=== PATIENT | male | born 1945 | race Caucasian/White ===

== ENCOUNTER 2017-05-08 07:20 | Outpatient (CLI) ==
--- NOTE | 2017-05-08 08:16 | DI ---
EXAM: Chest two view, frontal and lateral views. HISTORY: Hypertension. Smoking history. COMPARISON: 01/15/2012. FINDINGS: The heart size is normal. Atherosclerotic calcifications are present. There is no pulmon wero vascular congestion. The lungs are clear. No pleural effusion or pneumothorax is seen. No acut e osseous abnormality identified. Since the prior study, there has been no significant interval chamberlain ge. IMPRESSION: No acute cardiopulmonary process.
== END 2017-05-08 07:21 | disposition home or self-care (01) ==
LOC: RAD 07:20
PROVIDERS: ATTEND Internal Medicine
DX: I10 Essential (primary) hypertension (principal); Z87.891 Personal history of nicotine dependence

== ENCOUNTER 2017-06-07 09:50 | Inpatient (IN) ==
[2017-06-07] MEDS ORDERED: TYLENOL PO PRN (10:18)
[2017-06-07] MEDS ORDERED: MORPHINE 4 MG/ML VIAL IVP PRN (10:18)
[2017-06-07] MEDS ORDERED: NITROSTAT SL PRN (10:18)
[2017-06-07] MEDS ORDERED: VISTARIL INJ IM PRN (10:18)
[2017-06-07] MEDS ORDERED: ATROPINE SULFATE PFS IVP PRN (10:18)
[2017-06-07] MEDS ORDERED: DEXTROSE 5%-1/2NS IV SOLUTION 1,000 ML IV SCH ×2 (10:30→11:26)
[2017-06-07 10:56] VITALS: BMI 25.1
[2017-06-07] MEDS ORDERED: SOLU-MEDROL 125 MG IVP SCH (11:00)
[2017-06-07] MEDS: XOPENEX 1.25 MG NEB SCH ×3 (11:09→22:42)
[2017-06-07] MEDS ORDERED: LANOXIN IVP STA ×2 (11:29→20:09)
[2017-06-07] MEDS ORDERED: CARDIZEM PO STA (11:46)
[2017-06-07] MEDS ORDERED: CARDIZEM INJ 125 MG in SODIUM CHLORIDE 100 ML IV SCH (12:00)
[2017-06-07] MEDS: CARDIZEM INJ 125 MG in SODIUM CHLORIDE 100 ML IV SCH (12:04)
[2017-06-07] MEDS: ZITHROMAX PO SCH (12:09)
--- NOTE | 2017-06-07 13:50 | DI ---
Exam: Two x-rays of the chest. Comparison: 05/08/2017. Reason for exam: Short of air. FINDINGS: Patchy airspace opacities are seen in the right mid lung. No pneumothorax or pleural effus ion. The cardiac silhouette is not enlarged. The imaged osseous structures appear grossly unremarka ble without acute fracture. Impression: Patchy airspace opacities in the right lower lobe likely pneumonia.
[2017-06-07] MEDS: ROCEPHIN 1 GM in SODIUM CHLORIDE 50 ML IV SCH (14:53)
[2017-06-07] MEDS: SOLU-MEDROL 125 MG IVP SCH ×2 (14:53→21:06)
[2017-06-07] MEDS: DEXTROSE 5%-1/2NS IV SOLUTION 1,000 ML IV SCH (16:18)
[2017-06-07] MEDS ORDERED: CARDIZEM PO ONE (20:08)
[2017-06-07] MEDS ORDERED: CARDIZEM ONE (20:13)
[2017-06-07] MEDS: XALATAN OP SCH (21:05)
[2017-06-08] MEDS: DEXTROSE 5%-1/2NS IV SOLUTION 1,000 ML IV SCH ×2 (00:15→21:37)
[2017-06-08] MEDS ORDERED: CARDIZEM ONE (05:04)
[2017-06-08] MEDS: XOPENEX 1.25 MG NEB SCH ×4 (05:08→23:02)
[2017-06-08] MEDS ORDERED: CARDIZEM INJ ONE (05:18)
[2017-06-08] MEDS: SOLU-MEDROL 125 MG IVP SCH ×3 (05:22→20:43)
[2017-06-08] MEDS ORDERED: SODIUM CHLORIDE 100 ML IV ONE (05:27)
[2017-06-08] MEDS ORDERED: CARDIZEM PO ONE ×3 (06:00→20:08)
[2017-06-08] MEDS: ROCEPHIN 1 GM in SODIUM CHLORIDE 50 ML IV SCH (08:39)
[2017-06-08] MEDS: ZITHROMAX PO SCH (08:40)
[2017-06-08] MEDS: ASPIRIN EC PO SCH (08:40)
[2017-06-08] MEDS: LOVENOX SUBCUT SCH ×2 (08:40→20:44)
[2017-06-08] MEDS ORDERED: ASPIRIN EC PO SCH (09:00)
--- NOTE | 2017-06-08 09:50 | PCM.PROG ---
Attending Provider: ATTENDING PROVIDER: Dr. RAYA DUKES This patient is seen with Yue Knight, Nurse Practitioner. DATE OF SERVICE: 06/08/17 SUBJECTIVE: This 71 year old WHITE/ M was hospitalized 06/07/17. The patient is admitted with pneumonia. The patient's new problem is atrial flutter with rate of 170/min. REVIEW OF SYSTEMS: CONSTITUTIONAL: The patient is feeling better. No night sweats. No fatigue, malaise, lethargy. No fever or chills. HEENT: Positive for husky voice. Eyes: No visual changes. No eye pain. No eye discharge. ENT: No runny nose. No epistaxis. No sinus pain. No odynophagia. No congestion. RESPIRATORY: No cough, no congestion. No hemoptysis. No shortness of breath. CARDIOVASCULAR: No angina symptoms. No CHF symptoms or symptoms of coronary insufficiency. No atypical chest pain for CAD. No palpitations. No orthopnea.. GASTROINTESTINAL: Appetite improved. No abdominal pain. No nausea or vomiting. No diarrhea or constipation. No hematemesis. No hematochezia. GENITOURINARY: No urgency. No frequency. No dysuria. No hematuria. No obstructive symptoms. No discharge. No pain. No significant abnormal bleeding. MUSCULOSKELETAL: No musculoskeletal pain; no joint swelling. NEUROLOGICAL: Awake, alert, oriented to time, place and person. No headache. No neck pain. No syncope. No seizures. No dizziness. PSYCHIATRIC: Not anxious. No depression. No suicidal thoughts. No homicidal thoughts. SKIN: No rash. No lesions. No wounds. ENDOCRINE: No unexplained weight loss. No weight gain. HEMATOLOGIC/LYMPHATIC: No anemia. No purpura. No petechiae. No prolonged or excessive bleeding. No palpable lymph nodes. PHYSICAL EXAMINATION: GENERAL: The patient is awake, alert and oriented, lying in bed in no distress. VITAL SIGNS: Temperature 97.0 F, Pulse 85, Respiratory Rate 22, BP 130/66, Pulse Ox 93% HEENT: Head normocephalic, atraumatic. Eyes: Extraocular muscles are intact. Pupils are equal, round and reactive to light and accommodation. Ears: No lesions. Nose appeared normal. Throat: No exudate or erythema. NECK: Supple. No JVD, no carotid bruit. No lymphadenopathy or thyromegaly. LUNGS: Decreased breath sounds but more air entry with expiratory wheeze. Clear to auscultation. Percussion note normal. Chest symmetrical. HEART: S1, S2, no S3. No murmurs. No cyanosis or clubbing. No ascites. Pulses: Dorsalis pedis and posterior tibial pulses +1 bilaterally.. ABDOMEN: Soft. Non-tender. Bowel sounds active. No CVA tenderness. No mass felt. EXTREMITIES: No edema. Full range of motion of all extremities, equal. NEUROLOGIC: No focal deficit. Cranial nerves II through XII are grossly intact. No headache, no double vision or headache. SKIN: Not dry. Intact. Turgor-normal. LYMPHATIC: No palpable lymph nodes/no lymphedema. MUSCULOSKELETAL: Normal joints with no swelling. Muscle tone is normal. LAB REVIEW: 06/08/17 05:05 06/08/17 05:05 06/08/17 05:05: Sodium 128 L, Potassium 4.3, Chloride 98, Carbon Dioxide 19 L, Anion Gap 15.3, BUN 26 H, Creatinine 0.95, Estimated GFR (MDRD) 78.00, BUN/ Creatinine Ratio 27.36, Glucose 213 H D, Calcium 8.3, Total Bilirubin 0.37, AST 26, ALT 34, Alkaline Phosphatase 53 L, Total Protein 6.2, Albumin 2.7 L, Globulin 3.5, Albumin/Globulin Ratio 0.77 06/08/17 05:05: WBC 4.47 D, RBC 3.81 L, Hgb 12.7 L, Hct 35.1 L, MCV 92.1, MCH 33.3 H, MCHC 36.2 H, RDW Coeff of Cristino 11.9, Plt Count 216, Immature Gran % (Auto ) 0.7, Neut % (Auto) 83.9, Lymph % (Auto) 12.3, [place] % (Auto) 3.1, Eos % (Auto) 0.0, Baso % (Auto) 0.0, Immature Gran # (Auto) 0.0, Neut # 3.8, Lymph # 0.6, [place] # 0.1 L, Eos # 0.0, Baso # 0.0 06/07/17 20:01: Influenza A (Rapid) Negative, Influenza B (Rapid) Negative 06/07/17 18:30: Total Creatine Kinase 179, CK-MB (CK-2) 2.7, CK-MB (CK-2) % 1.39003, Myoglobin 131, Troponin I < 0.0100 06/07/17 13:15: Urine Color Yellow, Urine Clarity Clear, Urine pH 6.0, Ur Specific [place] 1.015, Urine Protein 1+, Urine Glucose (UA) Negative, Urine Ketones Negative, Urine Blood 1+, Urine Nitrite Negative, Urine Bilirubin Negative, Urine Urobilinogen 0.2, Ur Leukocyte Esterase Negative, Urine Microscopic RBC 0-2, Ur Squamous Epith Cells 0-2 06/07/17 10:45: Sodium 130 L, Potassium 4.1, Chloride 97 L, Carbon Dioxide 20 L , Anion Gap 17.1, BUN 26 H, Creatinine 1.14 H, Estimated GFR (MDRD) 64.00, BUN/ Creatinine Ratio 22.80, Glucose 147 H, Calcium 9.0, Total Bilirubin 0.54, AST 20 , ALT 19, Alkaline Phosphatase 61, Total Creatine Kinase 185, CK-MB (CK-2) 2.7, CK-MB (CK-2) % 1.06109, Myoglobin 155, Troponin I 0.0220, Total Protein 7.0, Albumin 3.2 L, Globulin 3.8, Albumin/Globulin Ratio 0.84 06/07/17 10:45: Puncture Site R rad, O2 Saturation 92.0 L, ABG pH 7.497 H, ABG pCO2 25.5 L, ABG pO2 57.0 L*, ABG HCO3 19.7 L, ABG Total CO2 20 L, ABG Base Excess -3 L, Gunner Test +, FiO2 % 21.0 06/07/17 10:45: WBC 9.67, RBC 4.15 L, Hgb 13.9 L, Hct 38.9 L, MCV 93.7, MCH 33.5 H, MCHC 35.7 H, RDW Coeff of Cristino 12.3, Plt Count 219, Immature Gran % (Auto ) 0.4, Neut % (Auto) 86.7, Lymph % (Auto) 5.3 L, [place] % (Auto) 7.4, Eos % (Auto ) 0.0, Baso % (Auto) 0.2, Immature Gran # (Auto) 0.0, Neut # 8.4 H, Lymph # 0.5 L, [place] # 0.7, Eos # 0.0, Baso # 0.0 ASSESSMENT: 1. Pneumonia, improving clinically 2. Atrial flutter/fib acceptable rate of 90 to 110 3. Former smoker, quit 15 years ago 4. Normal valves by echo, nonvalvular atrial fib with normal LV contractility and mild LVH. Atrial cavity 4.3 cm PLAN: 1. Continue steroids and antibiotics 2. Nebs treatment 3. Add Lovenox 40 mg twice a day with 40 mg now 4. CHADS2 VASC score is 2. Plan and coordination of the patient's care discussed in the presence of Accountant Manager and nurse. CONDITION: Stable, improving. SCRIBED BY: KIKI BELTRE, Case Loader Operator scribed while in presence of service performed by Dr. Dukes/Yue Knight APRN on 06/08/17 ([id number])
--- NOTE | 2017-06-08 11:42 | HP ---
DATE OF SERVICE: 06/07/17 REASON FOR HOSPITALIZATION: HISTORY OF PRESENT ILLNESS: PAST MEDICAL HISTORY: PAST SURGICAL HISTORY: REVIEW OF SYSTEMS: CONSTITUTIONAL: No night sweats. No fatigue, malaise, lethargy. No fever or chills. HEENT: Eyes: No visual changes. No eye pain. No eye discharge. ENT: No runny nose. No epistaxis. No sinus pain. No sore throat. No odynophagia. No ear pain. No congestion. RESPIRATORY: No cough, no congestion. No hemoptysis. No shortness of breath. CARDIOVASCULAR: No angina symptoms. No CHF symptoms. No atypical chest pain for CAD. No palpitations. No orthopnea. GASTROINTESTINAL: No abdominal pain. No nausea or vomiting. No diarrhea or constipation. No hematemesis. No hematochezia. GENITOURINARY: No urgency. No frequency. No dysuria. No hematuria. No obstructive symptoms. No discharge. No pain. No significant abnormal bleeding. MUSCULOSKELETAL: No musculoskeletal pain. No joint swelling. No arthritis. NEUROLOGICAL: No headache. No neck pain. No syncope. No seizures. No dizziness. PSYCHIATRIC: Not anxious. No depression. No suicidal thoughts. No homicidal thoughts. SKIN: No rash. No lesions. No wounds. ENDOCRINE: No unexplained weight loss. No weight gain. HEMATOLOGIC/LYMPHATIC: No anemia. No purpura. No petechiae. No prolonged or excessive bleeding. No palpable lymph nodes. PERSONAL/FAMILY/SOCIAL HISTORY: MEDICATIONS: ALLERGIES: PHYSICAL EXAMINATION: GENERAL: The patient is , lying/sitting in bed in no distress. VITAL SIGNS: HEENT: Head normocephalic, atraumatic. Eyes: Extraocular muscles are intact. Pupils are equal, round and reactive to light and accommodation. Ears: No lesions. Nose appeared normal. Throat: No exudate or erythema. NECK: Supple. No JVD, no carotid bruit. No lymphadenopathy or thyromegaly. LUNGS: Clear to auscultation. Percussion note normal. Chest symmetrical. HEART: S1, S2, no S3. No murmurs. No cyanosis or clubbing. No ascites. Pulses: Dorsalis pedis and posterior tibial pulses +1 to +2 both sides. ABDOMEN: Soft. Nontender. Bowel sounds active. No CVA tenderness. No mass felt. EXTREMITIES: No edema. Full range of motion of all extremities, equal. NEUROLOGIC: No focal deficit. Cranial nerves II through XII are grossly intact. No headache, no double vision or headache. SKIN: Not dry. Intact. Turgor - normal. LYMPHATIC: No palpable lymph nodes/no lymphedema. MUSCULOSKELETAL: Normal joints with no swelling. Muscle tone is normal. LABS: Sodium 130, potassium 4.1, chloride 97, c02 20, BUN 26, creatinine 1.14, glucose 147, GFR 64, total bili 0.54, AST 20, ALT 19, CK 185, CK-MB 2.7, troponin 0.02, total protein 7.0, albumin 3.2, alkaline phosphatase 61. White count 9.67, red blood cells 4.15, hemoglobin 13.9, hematocrit 38.9, platelets 219. ABGs on room air pH 7.497, pc02 25.5, p02 57, base excess of negative 3, bicarb 19.7, TC02 20, 02 sat 92. Urine color is yellow, pH 6.0, protein 1+, negative glucose, negative ketones, 1+ blood, negative nitrites, negative bili, negative leuks. Chest x-ray shows patchy air space opacities in right lower lobe likely pneumonia. TIME SPENT: More than 70 minutes. MTDD
[2017-06-08] MEDS: CARDIZEM INJ 125 MG in SODIUM CHLORIDE 100 ML IV SCH (12:00)
[2017-06-08] MEDS: CARDIZEM PO SCH (20:44)
[2017-06-08] MEDS: XALATAN OP SCH (20:47)
[2017-06-09] MEDS: XOPENEX 1.25 MG NEB SCH ×4 (04:42→22:40)
[2017-06-09] MEDS: SOLU-MEDROL 125 MG IVP SCH ×2 (05:22→13:47)
[2017-06-09] MEDS: ASPIRIN EC PO SCH (09:46)
[2017-06-09] MEDS: CARDIZEM PO SCH ×2 (09:46→20:30)
[2017-06-09] MEDS: ROCEPHIN 1 GM in SODIUM CHLORIDE 50 ML IV SCH (09:46)
[2017-06-09] MEDS: LOVENOX SUBCUT SCH ×2 (09:47→20:29)
[2017-06-09] MEDS: ZITHROMAX PO SCH (09:47)
[2017-06-09] MEDS: XALATAN OP SCH (20:29)
[2017-06-10] MEDS: DEXTROSE 5%-1/2NS IV SOLUTION 1,000 ML IV SCH ×2 (02:30→02:31)
[2017-06-10] MEDS: XOPENEX 1.25 MG NEB SCH ×4 (04:30→22:43)
[2017-06-10] MEDS: ASPIRIN EC PO SCH (09:20)
[2017-06-10] MEDS: CARDIZEM PO SCH ×2 (09:20→20:25)
[2017-06-10] MEDS: LOVENOX SUBCUT SCH ×2 (09:22→20:24)
[2017-06-10] MEDS: PREDNISONE PO SCH (09:23)
[2017-06-10] MEDS: ROCEPHIN 1 GM in SODIUM CHLORIDE 50 ML IV SCH (11:30)
[2017-06-10] MEDS: KEFLEX PO SCH ×2 (16:03→20:25)
[2017-06-10] MEDS: XALATAN OP SCH (20:24)
[2017-06-11] MEDS: KEFLEX PO SCH ×2 (04:21→12:46)
[2017-06-11] MEDS: XOPENEX 1.25 MG NEB SCH ×2 (04:52→11:10)
--- NOTE | 2017-06-11 08:43 | PN ---
DATE OF SERVICE: 06/07/17 SUBJECTIVE: The patient was hospitalized this morning with acute bronchitis and severe chronic lung disease. The patient on further work when he was monitored and had an EKG done showed atrial flutter with rate of 170 per minute. The patient's systolic blood pressure 112 and he doesn't have any symptoms of coronary insufficiency. The patient was given IV 5mg Cardizem and 5mg per minute drip along with Lanoxin 0.25mg IV with 60mg PO Cardizem dose. When I rechecked the patient again in the special care the patient was oriented to time, place and person and he says that he is feeling better. His rate was 110 with atrial flutter with varying degree of AV block. He had Carotid massage with nearly 4-5 second pause with atrial flutter waves noted. The patient was explained about these findings. The patient will be given Lovenox. CONDITION: Stable. TIME SPENT: More than 30 minutes. Plan and coordination of the patient's care discussed in the presence of nurse. ABEBA
[2017-06-11] MEDS: CARDIZEM PO SCH (08:55)
[2017-06-11] MEDS: PREDNISONE PO SCH (08:55)
[2017-06-11] MEDS: ASPIRIN EC PO SCH (08:55)
[2017-06-11] MEDS: LOVENOX SUBCUT SCH (08:55)
[2017-06-11] MEDS: CARDIZEM INJ 125 MG in SODIUM CHLORIDE 100 ML IV SCH (09:48)
--- NOTE | 2017-06-11 10:07 | DI ---
EXAM: Two views of the chest. History: Follow-up pneumonia Comparison: Chest radiograph 06/07/2017 Findings: Heart size is within normal limits. Resolved right lower lobe infiltrate. No developing opacities. No appreciable pleural fluid and no pneumothorax. Atherosclerotic vascular calcification s. No acute osseous abnormalities. Impression: No acute cardiopulmonary process
[2017-06-11 10:41] VITALS: BP 118/64; TEMP 98
--- NOTE | 2017-06-11 10:50 | PCM.PROG ---
Attending Provider: ATTENDING PROVIDER: Dr. RAYA DUEKS This patient is seen with Yue Knight, Nurse Practitioner. DATE OF SERVICE: 06/11/17 SUBJECTIVE: This 71 year old WHITE/ M was hospitalized 06/07/17. The patient is lying in bed, alert. He states he is ready to go home today. He has been up and about walking. Shortness of breath has significantly improved. REVIEW OF SYSTEMS: CONSTITUTIONAL: No night sweats. No fatigue, malaise, lethargy. No fever or chills. HEENT: Eyes: No visual changes. No eye pain. No eye discharge. ENT: No runny nose. No epistaxis. No sinus pain. No odynophagia. No congestion. RESPIRATORY: Positive for cough and congestion. No hemoptysis. No shortness of breath. CARDIOVASCULAR: No angina symptoms. No CHF symptoms. No atypical chest pain for CAD. No palpitations. No orthopnea.. GASTROINTESTINAL: No abdominal pain. No nausea or vomiting. No diarrhea or constipation. No hematemesis. No hematochezia. GENITOURINARY: No urgency. No frequency. No dysuria. No hematuria. No obstructive symptoms. No discharge. No pain. No significant abnormal bleeding. MUSCULOSKELETAL: No musculoskeletal pain; no joint swelling. NEUROLOGICAL: Awake, alert, oriented to time, place and person. No headache. No neck pain. No syncope. No seizures. No dizziness. PSYCHIATRIC: Not anxious. No depression. No suicidal thoughts. No homicidal thoughts. SKIN: No rash. No lesions. No wounds. ENDOCRINE: No unexplained weight loss. No weight gain. HEMATOLOGIC/LYMPHATIC: No anemia. No purpura. No petechiae. No prolonged or excessive bleeding. No palpable lymph nodes. PHYSICAL EXAMINATION: GENERAL: The patient is awake, alert and oriented, sitting in bed in no distress. VITAL SIGNS: Temperature 97.8 F, Pulse 65, Respiratory Rate 23, BP 127/63, Pulse Ox 92% HEENT: Head normocephalic, atraumatic. Eyes: Extraocular muscles are intact. Pupils are equal, round and reactive to light and accommodation. Ears: No lesions. Nose appeared normal. Throat: No exudate or erythema. NECK: Supple. No JVD, no carotid bruit. No lymphadenopathy or thyromegaly. LUNGS: Diminished breath sounds bilaterally with improved bilateral rhonchi. Percussion note normal. Chest symmetrical. HEART: S1, S2, no S3. No murmurs. No cyanosis or clubbing. No ascites. Pulses: Dorsalis pedis and posterior tibial pulses +1 to +2 both sides. ABDOMEN: Soft. Non-tender. Bowel sounds active. No CVA tenderness. No mass felt. EXTREMITIES: No edema. Full range of motion of all extremities, equal. NEUROLOGIC: No focal deficit. Cranial nerves II through XII are grossly intact. No headache, no double vision or headache. SKIN: Not dry. Intact. Turgor-normal. LYMPHATIC: No palpable lymph nodes/no lymphedema. MUSCULOSKELETAL: Normal joints with no swelling. Muscle tone is normal. LAB REVIEW: 06/11/17 04:49 06/11/17 04:49 06/11/17 04:49: Hemoglobin A1c 6.1 H 06/11/17 04:49: Sodium 133 L, Potassium 4.6, Chloride 102, Carbon Dioxide 23, Anion Gap 12.6, BUN 24 H, Creatinine 0.92, Estimated GFR (MDRD) 81.00, BUN/ Creatinine Ratio 26.08, Glucose 138 H, Calcium 8.5, Total Bilirubin 0.36, AST 20 , ALT 62, Alkaline Phosphatase 53 L, Total Protein 5.5 L, Albumin 2.8 L, Globulin 2.7, Albumin/Globulin Ratio 1.04, TSH 0.529, Free T4 1.19 H 06/11/17 04:49: WBC 7.52, RBC 3.60 L, Hgb 11.8 L, Hct 33.5 L, MCV 93.1, MCH 32.8 H, MCHC 35.2, RDW Coeff of Cristino 12.1, Plt Count 311, Neutrophils % (Manual) 68.0, Lymphocytes % (Manual) 20.0, Monocytes % (Manual) 12.0 H, Anisocytosis Not present 06/11/17 04:20: Puncture Site Lb, O2 Saturation 92.0 L, ABG pH 7.462 H, ABG pCO2 35.3, ABG pO2 61.0 L, ABG HCO3 25.2, ABG Total CO2 26, ABG Base Excess 1, Gunner Test +, FiO2 % 21.0 ASSESSMENT: 1. Pneumonia, improving clinically 2. Atrial flutter/fib acceptable rate of 90 to 110 3. Former smoker, quit 15 years ago 4. Normal valves by echo, nonvalvular atrial fib with normal LV contractility and mild LVH. Atrial cavity 4.3 cm PLAN: 1. D/C home 2. Resume Keflex times 7 days 3. Prednisone 20 mg b.i.d. for 2 days, daily for 3 days 4. Continue ProAir inhaler 3 to 4 times daily 5. Continue Cardizem Plan and coordination of the patient's care discussed in the presence of Geospatial Analyst and nurse. CONDITION: Stable SCRIBED BY: KIKI BELTRE Guest Relations Manager scribed while in presence of service performed by Dr. Dukes/Yue Knight APRN on 06/11/17 ([id number])
--- NOTE | 2017-06-11 11:22 | CM.DICTOOL ---
ADMISSION: 06/07/17 09:50 DISCHARGE: 05/1817 DATE OF SERVICE: 06/11/17 FINAL DIAGNOSIS PNEUMONIA, COMMUNITY ACQUIRED A-FIB/FLUTTER, RATE CONTROLLED HYPERTENSION HISTORY OF ELEVATED PSA CAROTID OCCULSIVE DISEASE S/P ENDARTERECTOMY, 2012-DR. COOK FORMER SMOKER LAST VITALS Temp Pulse Resp BP Pulse Ox 98 F 74 20 118/64 94 L 06/11/17 10:00 06/11/17 10:00 06/11/17 10:00 06/11/17 10:00 06/11/17 10:00 ACTIVE MEDICATIONS Albuterol Sulfate (Proair Hfa) 2 puffs IH Q4H Aspirin (Aspirin Ec) 81 mg PO DAILYWM LARA Last Admin: 06/11/17 08:55 Dose: 81 mg Cephalexin (Keflex) 500 mg PO Q8HR LARA (INSTRUCTED TO COMPLETE AT HOME) Last Admin: 06/11/17 04:21 Dose: 500 mg Latanoprost (Xalatan) 1 drop OP BEDTIME LARA Last Admin: 06/10/17 20:24 Dose: 1 drop Losartan Potassium (Cozaar) 50 mg PO DAILY (DISCONTINUED) ALLERGIES No Known Allergies Allergy (Unverified 06/10/17 16:04) NEW PRESCRIPTIONS: PLEASE DO NOT TAKE YOUR LOSARTAN POTASSIUM (COZAAR). THIS HAS BEEN DISCONTINUED PLEASE FINISH THE KEFLEX MEDICATION PRESCRIBED PRIOR TO THIS HOSPITALIZATION NEW PRESCRIPTIONS DILTIAZEM HCL (CARDIZEM) 60 MG, TAKE ONE TABLET BY MOUTH EVERY 12 HOURS PREDNISONE 20 MG, TAKE ONE TABLET BY MOUTH TWICE DAILY FOR 2 DAYS, THEN DAILY FOR 3 DAYS. TAKE WITH FOOD SMOKING: FORMER SMOKER NONE FOR 15+ YEARS DISEASE SPECIFIC EDUCATION: AFIB/FLUTTER PNEUMONIA HOME MEDICATIONS NEW PRESCRIPTIONS ADVERSE EFFECTS OF LONG-TERM USE OF STEROIDS FOLLOW UP LAB REVIEW: 06/11/17 04:49 06/11/17 04:49 06/11/17 04:49: Hemoglobin A1c 6.1 H 06/11/17 04:49: Sodium 133 L, Potassium 4.6, Chloride 102, Carbon Dioxide 23, Anion Gap 12.6, BUN 24 H, Creatinine 0.92, Estimated GFR (MDRD) 81.00, BUN/ Creatinine Ratio 26.08, Glucose 138 H, Calcium 8.5, Total Bilirubin 0.36, AST 20 , ALT 62, Alkaline Phosphatase 53 L, Total Protein 5.5 L, Albumin 2.8 L, Globulin 2.7, Albumin/Globulin Ratio 1.04, TSH 0.529, Free T4 1.19 H 06/11/17 04:49: WBC 7.52, RBC 3.60 L, Hgb 11.8 L, Hct 33.5 L, MCV 93.1, MCH 32.8 H, MCHC 35.2, RDW Coeff of Cristino 12.1, Plt Count 311, Neutrophils % (Manual) 68.0, Lymphocytes % (Manual) 20.0, Monocytes % (Manual) 12.0 H, Anisocytosis Not present 06/11/17 04:20: Puncture Site Lb, O2 Saturation 92.0 L, ABG pH 7.462 H, ABG pCO2 35.3, ABG pO2 61.0 L, ABG HCO3 25.2, ABG Total CO2 26, ABG Base Excess 1, Gunner Test +, FiO2 % 21.0 PLAN: DISCHARGE HOME TODAY RETURN TO SEE DR. DUKES ON 06/20/17 AT 10:30 A.M. RESUME YOUR HOME MEDICATIONS PER LIST PROVIDED BY THE NURSING STAFF PLEASE DO NOT TAKE YOUR LOSARTAN POTASSIUM (COZAAR). THIS HAS BEEN DISCONTINUED PLEASE FINISH THE KEFLEX MEDICATION PRESCRIBED PRIOR TO THIS HOSPITALIZATION NEW PRESCRIPTIONS DILTIAZEM HCL (CARDIZEM) 60 MG, TAKE ONE TABLET BY MOUTH EVERY 12 HOURS PREDNISONE 20 MG, TAKE ONE TABLET BY MOUTH TWICE DAILY FOR 2 DAYS, THEN DAILY FOR 3 DAYS. TAKE WITH FOOD ACTIVITY GET PLENTY OF REST AT HOME. GRADUALLY INCREASE YOUR ACTIVITY LEVEL ACCORDING TO YOUR TOLERATION DIET HEALTHY HEART SUMMARY THE PATIENT IS ALERT AND ORIENTED X3. HE CURRENTLY RESIDES AT HOME WITH HIS SPOUSE. HE DESIRES TO RETURN THERE AT DISCHARGE. HE HAS BEEN INDEPENDENT WITH [employer] AND HAS NOT REQUIRED ANY DME, HOME HEALTH OR HOMEMAKING SERVICES. AT DISCHARGE HE WILL NOT REQUIRE ANY OF THESE SERVICES. HIS SKIN TURGOR IS INTACT AND WITHOUT DECUBITUS ULCERS. HYDRATION AND NUTRITIONAL STATUS ARE GOOD AT DISCHARGE. THE PATIENT IS AWARE AND AGREEABLE FOR TODAY'S DISCHARGE PLAN. CURRENT CODE STATUS FULL CODE Stan MARTINI APRN RAYA DUKES M.D.
--- NOTE | 2017-06-12 07:33 | ECHO2D ---
Date of Exam: 06/08/17 Ordering Physician: RAYA DUKES Room #: SCU 1 Reason for Echo: ATRIAL FIBRILLATION, SHORT OF AIR M-Mode Normal Adult Results LV Dimensions Normal Adult Results AoV Opening excursions >1.6 >1.6 LVEDD-base- 3.5-5.8 4.3 Ao root dimensions 2.0-3.7 3.2 LVESD-base- 3.1-4.6 L. Atrium dimensions 1.9-3.8 4.3 Post. Wall thickness 0.8-1.1 1.3 IV septum (thickness) 0.7-1.2 1.3 Post. Wall excursion 0.72-1.3 NORMAL Septal motion NORMAL Systolic motion R. Ventricular cavity 1.5-2.0 NORMAL LVEF 60% 62% Paradoxical septal wall motion NORMAL 2-D : ENLARGED LEFT ATRIAL CAVITY, NORMAL LEFT VENTRICULAR CONTRACTILITY--NO EFFUSION, NO THROMBUS, NORMAL LEFT VENTRICLE SIZE M-MODE: MV: NORMAL AV: NORMAL TV: NORMAL PV: CHAMBER SIZE: ENLARGED LEFT ATRIAL CAVITY WALL MOTION: NORMAL PERICARDIUM: NORMAL INTERPRETATION: 1. LEFT VENTRICULAR HYPERTROPHY WITH ENLARGED LEFT ATRIAL CAVITY 2. NORMAL LEFT VENTRICULAR CONTRACTILITY 3. NORMAL LEFT VENTRICLE SIZE MTDD
--- NOTE | 2017-06-14 11:29 | PN ---
DATE OF SERVICE: 06/11/17 SUBJECTIVE: 71 year old white male seen with the Nurse Practitioner. The patient was admitted with pneumonia. The patient's pneumonia has resolved. He is up and about. His oxygen saturation is more than 90% on room air. The patient has been explained about chronic lung disease, also explained about his atrial fib/ flutter which he had it secondary to pneumonia and chronic lung disease. The patient's atrial flutter/fib has resolved he is in sinus rhythm. He was explained about all the medications. He has declined to consider any NORVAL blood thinner or Coumadin. I don't think that patient needs to be on. This is first episode based on his pneumonia and chronic lung disease. He was advised pulmonary rehab which he has declined. The patient during the stay in the hospital was treated with antibiotics, steroids, NEBS treatments. He is against taking any medications. A1c and PFT pending. CONDITION: Stable. TIME SPENT: More than 30 minutes. Plan and coordination of the patient's care discussed in the presence of nurse. ABEBA
--- NOTE | 2017-06-14 11:31 | PN ---
06/07/17: Level 5 06/08/17: Extensive 06/09/17: Intermediate 06/10/17: Intermediate 06/11/17: D as in discharge MTDD
--- NOTE | 2017-06-20 15:08 | PN ---
DATE OF SERVICE: 06/10/17 SUBJECTIVE: 71-year-old white male hospitalized with pneumonia. The patient's condition has improved remarkably. REVIEW OF SYSTEMS: CONSTITUTIONAL: No night sweats. No fatigue, malaise, lethargy. No fever or chills. HEENT: Eyes: No visual changes. No eye pain. No eye discharge. ENT: No runny nose. No epistaxis. No sinus pain. No sore throat. No odynophagia. No congestion. RESPIRATORY: No cough, no congestion. No hemoptysis. No shortness of breath. CARDIOVASCULAR: No angina symptoms. No CHF symptoms. No atypical chest pain for CAD. No palpitations. No orthopnea. GASTROINTESTINAL: No abdominal pain. No nausea or vomiting. No diarrhea or constipation. No hematemesis. No hematochezia. GENITOURINARY: No urgency. No frequency. No dysuria. No hematuria. No obstructive symptoms. No discharge. No pain. No significant abnormal bleeding. MUSCULOSKELETAL: No musculoskeletal pain; no joint swelling. NEUROLOGICAL: No headache. No neck pain. No syncope. No seizures. No dizziness. PSYCHIATRIC: Not anxious. No depression. No suicidal thoughts. No homicidal thoughts. SKIN: No rash. No lesions. No wounds. ENDOCRINE: No unexplained weight loss. No weight gain. HEMATOLOGIC/LYMPHATIC: No anemia. No purpura. No petechiae. No prolonged or excessive bleeding. No palpable lymph nodes. PHYSICAL EXAMINATION: GENERAL: The patient is oriented to time, place and person. VITAL SIGNS: Temperature 97.6, pulse 70, respiratory rate 20, BP 156/64, pulse ox 93%. HEENT: Head normocephalic, atraumatic. Eyes: Extraocular muscles are intact. Pupils are equal, round and reactive to light and accommodation. Ears: No lesions. Nose appeared normal. Throat: No exudate or erythema. NECK: Supple. No JVD, no carotid bruit. No lymphadenopathy or thyromegaly. LUNGS: Decreased breath sounds but clear to auscultation. Percussion note normal. Chest symmetrical. HEART: S1, S2, no S3. No murmurs. No cyanosis or clubbing. No ascites. Pulses: Dorsalis pedis and posterior tibial pulses +1 to +2 both sides. ABDOMEN: Soft. Nontender. Bowel sounds active. No CVA tenderness. No mass felt. EXTREMITIES: No edema. Full range of motion of all extremities, equal. NEUROLOGIC: No focal deficit. Cranial nerves II through XII are grossly intact. No headache, no double vision or headache. SKIN: Not dry. Intact. Turgor - normal. LYMPHATIC: No palpable lymph nodes/no lymphedema. MUSCULOSKELETAL: Normal joints with no swelling. Muscle tone is normal. ASSESSMENT: 1. PNEUMONIA SEEMS TO BE RESOLVING CLINICALLY 2. CHRONIC LUNG DISEASE 3. HYPERTENSION UNDER CONTROL 4. HYPERGLYCEMIA LIKELY FROM STEROID EFFECT PLAN: 1. Discontinue IV antibiotics 2. Begin Keflex 500 mg t.i.d. 3. Continue nebs treatment 4. Tomorrow morning the patient will have chest x-ray with PFT, A1C, T4 and TSH 5. The patient is advised to be up and about CONDITION: Stable. TIME SPENT: More than 30 minutes. Plan and coordination of the patient's care discussed in the presence of nurse. ABEBA
--- NOTE | 2017-06-22 11:49 | PN ---
DATE OF SERVICE: 06/09/17 SUBJECTIVE: 71 year old white male hospitalized with pneumonia right sided with acute respiratory failure. The patient's other problem with atrial flutter. The patient's condition has steadily improved. is in the room. REVIEW OF SYSTEMS: CONSTITUTIONAL: No night sweats. No fatigue, malaise, lethargy. No fever or chills. HEENT: Eyes: No visual changes. No eye pain. No eye discharge. ENT: No runny nose. No epistaxis. No sinus pain. No sore throat. No odynophagia. No congestion. RESPIRATORY: Mild cough, no congestion. No hemoptysis. No shortness of breath. CARDIOVASCULAR: No angina symptoms. No CHF symptoms. No atypical chest pain for CAD. No palpitations. No orthopnea. GASTROINTESTINAL: No abdominal pain. No nausea or vomiting. No diarrhea or constipation. No hematemesis. No hematochezia. GENITOURINARY: No urgency. No frequency. No dysuria. No hematuria. No obstructive symptoms. No discharge. No pain. No significant abnormal bleeding. MUSCULOSKELETAL: No musculoskeletal pain; no joint swelling. NEUROLOGICAL: No headache. No neck pain. No syncope. No seizures. No dizziness. PSYCHIATRIC: Not anxious. No depression. No suicidal thoughts. No homicidal thoughts. SKIN: No rash. No lesions. No wounds. ENDOCRINE: No unexplained weight loss. No weight gain. HEMATOLOGIC/LYMPHATIC: No anemia. No purpura. No petechiae. No prolonged or excessive bleeding. No palpable lymph nodes. PHYSICAL EXAMINATION: GENERAL: The patient is VITAL SIGNS: Temperature 98, pulse 93, respiratory 23, blood pressure 118/68 and pulse ox 98%. HEENT: Head normocephalic, atraumatic. Eyes: Extraocular muscles are intact. Pupils are equal, round and reactive to light and accommodation. Ears: No lesions. Nose appeared normal. Throat: No exudate or erythema. NECK: Supple. No JVD, no carotid bruit. No lymphadenopathy or thyromegaly. LUNGS: Decreased breath sounds with good air entry. Mild wheeze. Percussion note normal. Chest symmetrical. HEART: S1, S2, no S3. No murmurs. No cyanosis or clubbing. No ascites. Pulses: Dorsalis pedis and posterior tibial pulses +1 to +2 both sides. Telemetry shows since rhythm, the patient converted to sinus rhythm at 5:00am. Rate 80 per minute. ABDOMEN: Soft. Nontender. Bowel sounds active. No CVA tenderness. No mass felt. EXTREMITIES: No edema. Full range of motion of all extremities, equal. NEUROLOGIC: No focal deficit. Cranial nerves II through XII are grossly intact. No headache, no double vision or headache. SKIN: Not dry. Intact. Turgor - normal. LYMPHATIC: No palpable lymph nodes/no lymphedema. MUSCULOSKELETAL: Normal joints with no swelling. Muscle tone is normal. ASSESSMENT: 1. Pneumonia, resolving 2. Atrial flutter fib, resolved 3. Chronic lung disease PLAN: 1. Continue NEBS treatments 2. Steroids 3. Antibiotics 4. Should be up and about TIME SPENT: More than 30 minutes. Plan and coordination of the patient's care discussed in the presence of nurse. ABEBA
--- NOTE | 2017-06-28 11:26 | DS ---
DATE OF SERVICE: 06/11/17 FINAL DIAGNOSIS: 1. PNEUMONIA, COMMUNITY ACQUIRED 2. ATRIAL FIB/FLUTTER, RATE CONTROLLED 3. HYPERTENSION 4. HISTORY OF ELEVATED PSA 5. CAROTID OCCLUSIVE DISEASE STATUS POST ENDARTERECTOMY, 2013-DR. COOK 6. FORMER SMOKER DISCHARGE INSTRUCTIONS: Followup appointment: Return to see Dr. Allan on 06/20/17 at 10:30 a.m. MEDICATIONS AT DISCHARGE: Albuterol Sulfate (ProAir Hfa) two puffs IH q.4h Aspirin 81 mg p.o. daily with meal LARA Keflex 500 mg p.o. q.8hr LARA (instructed to complete at home) Xalatan one drop OP bedtime LARA Losartan 50 mg p.o. daily (discontinued) NEW PRESCRIPTIONS: Please do not take your Losartan Potassium (Cozaar). This has been discontinued. Please finish the Keflex medication as prescribed prior to this hospitalization. Diltiazem (Cardizem) 60 mg take one tablet by mouth every 12 hours Prednisone 20 mg take one tablet by mouth twice daily for 2 days then daily for 3 days. Take with food. DIET INSTRUCTIONS: Healthy Heart ACTIVITY: Get plenty of rest at home. Gradually increase your activity level according to your toleration. SMOKING: Former smoker None for 15+ years DISEASE SPECIFIC EDUCATION: Atrial flutter Pneumonia Home medications New prescriptions Adverse effects of long-term use of steroids Follow up HOSPITAL COURSE: This is a 71-year-old white male who was also a direct admit from the office on 06/07. He had been seen on 06/05 and presented with cough, shortness of breath. He is a senior care smoker and has quit for the past 15 years. He was treated with oral Keflex and Prednisone and also given a ProAir inhaler. He was instructed to return in two days or sooner if needed. He had failed with oral Prednisone and Keflex as well as a ProAir inhaler. When he returned two days later he stated he felt worse. He was having a low grade fever. He was unable to speak without moderate shortness of breath. He was a direct admit to the [facility] with pneumonia on the right lobe along with acute respiratory failure. After being admitted, he became tachycardic and went into atrial flutter, likely due to chronic lung disease along with acute respiratory failure. Dr. Allan put him on Cardizem 60 mg b.i.d. and gave him a one time dose of Digoxin 0.25. He has converted back to normal sinus rhythm and his shortness of breath has significantly improved after being put on Solu-Medrol 125 mg IV q.8hr along with Rocephin 1 gm IV daily. Today, at time of discharge , he is in normal sinus rhythm. His rate has been controlled. Heart rate 65, BP has been stable 127/63, temperature 97.8, pulse 93%. Labs are stable with hemoglobin of 11.8, hematocrit 33.5. Sodium slightly improved at 129 on admission; is 133 today. Potassium 4.6, BUN 24, creatinine 0.92. For the past two days he has been on p.o. antibiotics along with p.o. steroids and has tolerated this well. He will go home on Keflex 500 mg t.i.d. to take for the next week along with Prednisone 20 mg b.i.d. for 2 days and then 20 mg daily for three days. Dr. Allan performed an echo which heart size appeared normal. It is thought that after being converted back to normal sinus rhythm, he will likely stay due to normal LA cavity size. We will continue to monitor him closely for any arrhythmias. The patient has a ProAir inhaler he can use at home. He has been instructed to use this four times a day until his cough resolves. Condition has significantly improved since admission. He is no longer short of breath, has been up and about walking around, eating 100% of his meals each time. We will follow him closely and see him in the office later this week. TIME SPENT: More than 60 minutes. ABEBA
== END 2017-06-11 13:00 | disposition home or self-care (01) | DRG 193 ==
LOC: MEDSURG B 09:50 → SCU 12:01 → MEDSURG B 06-10 11:25
PROVIDERS: ADMIT Internal Medicine; ATTEND Internal Medicine
DX: J18.9 Pneumonia, unspecified organism (principal); J96.00 Acute respiratory failure, unspecified whether with hypoxia or hypercapnia; I48.92 Unspecified atrial flutter; I48.91 Unspecified atrial fibrillation; I10 Essential (primary) hypertension; J44.9 Chronic obstructive pulmonary disease, unspecified; I51.7 Cardiomegaly; R97.20 Elevated prostate specific antigen [PSA]; R73.9 Hyperglycemia, unspecified; Z86.718 Personal history of other venous thrombosis and embolism; Z98.890 Other specified postprocedural states; Z87.891 Personal history of nicotine dependence; Z79.899 Other long term (current) drug therapy
CPT/HCPCS: 36415; 80053; 81001; 82550; 82553; 82803; 83036; 83874; 84439; 84443; 84484; 85007; 85025; 87040; 87070; 87804; 93005; 93010; 94640

== ENCOUNTER 2019-02-17 08:59 | Outpatient (CLI) ==
--- NOTE | 2019-02-17 09:43 | DI ---
EXAM: Two views of the chest. History: Chest trauma. Comparison: Chest radiograph 06/11/2017 Findings: Heart size is within normal limits. Atherosclerotic vascular calcifications. Small left pleural effusion. No definite pneumonia. No pneumothorax. No acute osseous abnormalities. Impression: Small left pleural effusion
--- NOTE | 2019-02-17 09:56 | DI ---
Exam: Unilateral left rib x-rays. Comparison: Two-view chest x-ray performed on the same day. Reason for exam: Left lateral rib pain after fall. FINDINGS: There is elevation of the left hemidiaphragm with blunting of the left costophrenic angle. No displaced left-sided rib fractures are seen. Operative changes are seen in the upper abdomen. No evidence pneumothorax. Impression: 1. No displaced left-sided rib fractures are seen. 2. Small left-sided effusion/scarring. No pneumothorax is seen.
== END 2019-02-17 09:00 | disposition home or self-care (01) ==
LOC: RAD 08:59
PROVIDERS: ATTEND Internal Medicine
DX: R07.89 Other chest pain (principal); W19.XXXA Unspecified fall, initial encounter

== ENCOUNTER 2021-09-08 15:57 | Inpatient (IN) ==
--- NOTE | 2021-09-08 16:06 | ED.PDOC ---
General ED Provider: Dr. BARBER CROOK Chief Complaint: Palpitations Stated Complaint: palpitations today, no CP, had a-fib post-op once in the past Time Seen by Provider: 09/08/21 16:06 Mode of Arrival: Walk-In Information Source: Patient Exam Limitations: No limitations Primary Care Provider: RAYA DUKES Referred to ED by: PCP Nursing and Triage Documentation Reviewed and Agree: Yes Does patient meet sepsis criteria?: No System Inflammatory Response Syndrome: Not Applicable Sepsis Protocol: For patient's 13 years and over: Temp is 96.8 and below OR 101 and greater Pulse >90 BPM Resp >20/minute Acutely Altered Mental Status Are patient's symptoms suggestive of a new infection, such as: -Pneumonia -Skin, Soft Tissue -Endocarditis -UTI -Bone, Joint Infection -Implantable Device -Acute Abdominal Infection -Wound Infection -Meningitis -Blood Stream Catheter Infection -Unknown Cardiovascular Complaint Exam Palpitations Complaint/Exam Onset/Duration: few h Symptoms Are: Still present Timing: Constant Initial Severity: Moderate Current Severity: Moderate Character: Reports Fast and Irregular Alleviating: Reports None Associated Signs and Symptoms: Denies Lightheadedness, Dizziness, Syncope, Chest pain, Shortness of breath, Diaphoresis, Nausea or Vomiting Related Surgical History: Reports None Cardiac Risk Factors: Reports Hypertension Pulmonary Embolism Risk Factors: Reports None Atrial Fibrillation Risk Factors: Reports Hypertension Thyroid Exam: Normal Review of Systems Review Of Systems Constitutional: Reports No symptoms Eyes: Reports No symptoms Ears, Nose, Mouth, Throat: Reports No symptoms Respiratory: Reports No symptoms Cardiac: Reports Irregular heart rate and Palpitations GI: Reports No symptoms : Reports No symptoms Musculoskeletal: Reports No symptoms Skin: Reports No symptoms Neurological: Reports No symptoms Endocrine: Reports No symptoms Hematologic/Lymphatic: Reports No symptoms All Other Systems: Reviewed and Negative Physical Exam Physical Exam Appearance: Reports Well-appearing Ill-appearing: None Pain Distress: None Eyes: Reports GREGORIA ENT: Reports Oropharynx normal Neck: Supple Respiratory: Reports Airway patent and Breath sounds clear Cardiovascular: Reports Pulses normal and Tachycardia GI/: Reports Soft and Nontender Musculoskeletal: Reports Normal strength and ROM intact Skin: Reports Dry Neurological: Reports Sensation intact, Motor intact and Alert Psychiatric: Reports Affect appropriate and Mood appropriate Interpretation Radiology Interpretation Radiology Interpretation By: Radiologist Radiology Results: Negative Exam Interpreted: Portable CXR EKG Interpretation Time of EKG #1: 15:45 Rate: Tachy (167) Rhythm: Other (a-flutter) Ectopy: None [place]: NL ST Segment: Normal Interpretation: A-flutter with 2:1 conduction Time of EKG #2: 16:30 Rate: Normal Rhythm: Other (a-fib) Ectopy: None [place]: NL ST Segment: Normal EKG Interpretation: a-fib with controlled rate Physician Notification Case Discussed Physician Notified: Dr. Dukes Time of Notification: 17:00 Comments: Admit, transition to oral cardizem, eliquis. Admit/Transition Orders Entered by ED Provider: Yes Admit To: Inpatient Critical Care Note Critical Care Note Total Critical Care Time (mins): 30 Comments: afib with RVR control Course Course Hematology/Chemistry: 09/08/21 16:10 09/08/21 16:10 Orders, Labs, Meds: Lab Review 09/08/21 09/08/21 09/08/21 16:10 16:10 16:10 WBC 5.92 RBC 4.16 L Hgb 14.0 Hct 41.4 L MCV 99.5 H MCH 33.7 H MCHC 33.8 RDW Coeff of Cristino 12.7 Plt Count 243 Immature Gran % (Auto) 0.5 Neut % (Auto) 50.5 Lymph % (Auto) 33.3 [place] % (Auto) 11.1 H Eos % (Auto) 3.4 Baso % (Auto) 1.2 Neut # (Auto) 3.0 Lymph # (Auto) 2.0 [place] # (Auto) 0.7 Eos # (Auto) 0.2 Baso # (Auto) 0.1 Immature Gran # (Auto) 0.0 Sodium 139.3 Potassium 4.39 Chloride 108.3 H Carbon Dioxide 25.9 Anion Gap 9.49 BUN 22.1 H Creatinine 1.07 Estimated GFR (MDRD) 68.00 BUN/Creatinine Ratio 20.65 Glucose 106.3 H Calcium 9.49 Total Bilirubin 0.61 AST 23.7 ALT 19.6 Alkaline Phosphatase 55.2 L Total Creatine Kinase Troponin I < 0.012 Total Protein 6.77 Albumin 4.46 Globulin 2.31 Albumin/Globulin Ratio 1.93 TSH Free T4 1.23 Adenovirus (PCR) B. pertussis DNA (PCR) B.parapertussis DNA PCR C. pneumoniae DNA (PCR) Coronavirus OC43 (PCR) Coronavirus HKU1 (PCR) Coronavirus 229E (PCR) Coronavirus NL63 (PCR) Human Metapneumovir PCR Influenza Type A (PCR) Influenza B (RT-PCR) M. pneumoniae (PCR) Parainfluenza 1 (PCR) Parainfluenza 2 (PCR) Parainfluenza 3 (PCR) Parainfluenza 4 (PCR) RSV (PCR) Entero/Rhino (PCR) SARS-CoV-2 (PCR) 09/08/21 09/08/21 09/08/21 16:10 18:53 19:05 WBC RBC Hgb Hct MCV MCH MCHC RDW Coeff of Cristino Plt Count Immature Gran % (Auto) Neut % (Auto) Lymph % (Auto) [place] % (Auto) Eos % (Auto) Baso % (Auto) Neut # (Auto) Lymph # (Auto) [place] # (Auto) Eos # (Auto) Baso # (Auto) Immature Gran # (Auto) Sodium Potassium Chloride Carbon Dioxide Anion Gap BUN Creatinine Estimated GFR (MDRD) BUN/Creatinine Ratio Glucose Calcium Total Bilirubin AST ALT Alkaline Phosphatase Total Creatine Kinase 33.5 L Troponin I < 0.012 Total Protein Albumin Globulin Albumin/Globulin Ratio TSH 1.020 Free T4 Adenovirus (PCR) Not detected B. pertussis DNA (PCR) Not detected B.parapertussis DNA PCR Not detected C. pneumoniae DNA (PCR) Not detected Coronavirus OC43 (PCR) Not detected Coronavirus HKU1 (PCR) Not detected Coronavirus 229E (PCR) Not detected Coronavirus NL63 (PCR) Not detected Human Metapneumovir PCR Not detected Influenza Type A (PCR) Not detected Influenza B (RT-PCR) Not detected M. pneumoniae (PCR) Not detected Parainfluenza 1 (PCR) Not detected Parainfluenza 2 (PCR) Not detected Parainfluenza 3 (PCR) Not detected Parainfluenza 4 (PCR) Not detected RSV (PCR) Not detected Entero/Rhino (PCR) Not detected SARS-CoV-2 (PCR) Not detected Orders Category Date Time Status ADMIT PATIENT INPATIENT .TO [facility] (MONITORED BED) ADMISSION 09/08/21 18:41 Active EKG-(ED ONLY) Stat CARDIO 09/08/21 16:17 Completed EKG-(IP & OP ONLY) DAILY CARDIO 09/09/21 06:00 Ordered EKG-(IP & OP ONLY) DAILY CARDIO 09/10/21 06:00 Ordered EKG-(IP & OP ONLY) Stat CARDIO 09/08/21 18:35 Ordered OXYGEN Routine CARDIO 09/08/21 18:35 Ordered ACTIVITY .BR with BRP CARE 09/08/21 18:35 Active IP: INSERT SALINE LOCK ONCE CARE 09/08/21 18:35 Active NPO REMINDER: LAB TEST ONCE CARE 09/08/21 18:36 Active TELEMETRY MONITORING TELE CARE 09/08/21 18:35 Active TELEMETRY MONITORING TELE CARE 09/08/21 18:41 Active VITAL SIGNS Q4HR CARE 09/08/21 18:35 Active CARDIAC DIET DIETARY 09/08/21 Dinner Ordered CBC W/ AUTO DIFF Stat LAB 09/08/21 16:10 Completed CBC W/ AUTO DIFF Stat LAB 09/09/21 06:00 Ordered COMPREHENSIVE METABOLIC PANEL Stat LAB 09/08/21 16:10 Completed COMPREHENSIVE METABOLIC PANEL Stat LAB 09/09/21 06:00 Ordered CREATINE KINASE Q8H LAB 09/08/21 18:53 Completed CREATINE KINASE Q8H LAB 09/09/21 02:45 Ordered FREE T4 (FREE THYROXINE) Stat LAB 09/08/21 16:10 Completed LIPID PANEL Timed LAB 09/09/21 06:00 Ordered RESPIRATORY PANEL 2.1 (PCR) Stat LAB 09/08/21 19:05 Completed THYROID STIMULATING HORMONE Stat LAB 09/08/21 16:10 Completed TROPONIN I Q8H LAB 09/08/21 18:53 Completed TROPONIN I Q8H LAB 09/09/21 02:45 Ordered TROPONIN I Stat LAB 09/08/21 16:10 Completed URINALYSIS C & S IF INDICATED Stat LAB 09/08/21 18:35 Uncollected 0.9 % Sodium Chloride [Saline Flush] MEDS 09/08/21 21:00 Active 1 syr IVF Q8HR Acetaminophen [Tylenol] MEDS 09/08/21 18:35 Active 650 mg PO Q4H PRN Adenosine [Adenocard] MEDS 09/08/21 16:17 Discontinued 6 mg IVP ONCE ONE Apixaban [Eliquis] MEDS 09/08/21 21:00 Active 5 mg PO BID Atropine Sulfate Inj [Atropine Sulfate Pfs] MEDS 09/08/21 18:35 Active 0.5 mg IVP ONCE PRN Diltiazem HCl [Cardizem Inj] MEDS 09/08/21 16:44 Discontinued 25 mg .ROUTE .STK-MED ONE Diltiazem HCl [Cardizem] MEDS 09/08/21 21:00 Active 60 mg PO Q8HR Diltiazem HCl [Cardizem] 125 mg MEDS 09/08/21 18:00 Active 0.9 % Sodium Chloride [Sodium Chloride 100Ml] 100 ml IV TITRATION Nitroglycerin [Nitrostat] MEDS 09/08/21 18:35 Active 0.4 mg SL Q5MIN X 3 DOSES PRN CHEST, 1V AP ONLY Stat RADS 09/08/21 18:14 Completed Medications Generic Name Dose Route Start Last Admin Trade Name Freq PRN Reason Stop Dose Admin Acetaminophen 650 mg 09/08/21 18:35 Acetaminophen 325 Mg Tablet PO Q4H PRN Headache Apixaban 5 mg 09/08/21 21:00 Apixaban 5 Mg Tab PO BID LARA Atropine Sulfate 0.5 mg 09/08/21 18:35 Atropine Sulfate Inj 1 Mg/10 Ml Disp.Syrin IVP ONCE PRN Symptomatic Bradycardia Diltiazem HCl 60 mg 09/08/21 21:00 Diltiazem Hcl 60 Mg Tablet PO Q8HR LARA Diltiazem HCl 125 mg/ Sodium 125 mls @ 10 mls/hr 09/08/21 18:00 09/08/21 18:06 Chloride IV 10 mg/hr TITRATION LARA 10 mls/hr Administration Protocol 10 MG/HR Nitroglycerin 0.4 mg 09/08/21 18:35 Nitroglycerin 0.4 Mg Tab.Subl SL Q5MIN X 3 DOSES PRN Chest Pain Sodium Chloride 1 syr 09/08/21 21:00 0.9% Sodium Chloride 10 Ml Disp.Syrin IVF Q8HR LARA Discontinued Medications Generic Name Dose Route Start Last Admin Trade Name Freq PRN Reason Stop Dose Admin Adenosine 6 mg 09/08/21 16:17 09/08/21 16:28 Adenosine 12 Mg/4 Ml Vial IVP 09/08/21 16:18 6 mg ONCE ONE Administration Vital Signs: Temp Pulse Resp BP Pulse Ox 09/08/21 18:13 105 H 18 130/76 98 09/08/21 16:53 100 H 17 122/73 96 09/08/21 15:58 98.3 F 166 H 18 119/75 98 SAÚL Risk Score SAÚL Risk Score: Risk Score Odds of by 30D 0 0.1 (0.1-0.2) 1 0.3 (0.2-0.3) 2 0.4 (0.3-0.5) 3 0.7 (0.6-0.9) 4 1.2 (1.0-1.5) 5 2.2 (1.9-2.6) 6 3.0 (2.5-3.6) 7 4.8 (3.8-6.1) Discharge Plan Discharge Prescriptions: No Action aspirin 81 MG tablet,delayed release (DR/EC) 81 mg PO DAILY 0RF latanoprost 1 DROP drops 1 drp ophthalmic (eye) BEDTIME 0RF diltiazem HCl 60 MG tablet 60 mg PO DAILY 0RF Rx Instructions: TAKE ONE TABLET BY MOUTH EVERY 12 HOURS ED Provider: BARBER CROOK Physician Progress Note: [Better, rate control on cardizem drip, not converted yet, admit]
[2021-09-08] MEDS ORDERED: ADENOCARD IVP ONE (16:17)
[2021-09-08 16:33] LABS: BASOPHILS # (AUTO) 0.1 K/uL (0-0.2); BASOPHILS % (AUTO) 1.2 % (0.0-3.0); EOSINOPHILS # (AUTO) 0.2 K/ul (0.0-0.7); EOSINOPHILS % (AUTO) 3.4 % (0.0-7.0); HEMATOCRIT 41.4 % (42.0-52.0); IMMATURE GRANULOCYTE % (AUTO) 0.5 % (0.0-5.0); LYMPHOCYTES % (AUTO) 33.3 (10.0-50.0); MEAN CORPUSCULAR HEMOGLOBIN 33.7 pg (27.0-31.0); MEAN CORPUSCULAR HGB CONC 33.8 (31.8-35.4); MEAN CORPUSCULAR VOLUME 99.5 fl (80.0-94.0); MONOCYTES # (AUTO) 0.7 K/uL (0.4-2.0); MONOCYTES % (AUTO) 11.1 (0-10); NEUTROPHILS % (AUTO) 50.5 % (42.2-75.2); PLATELET COUNT 243 10^3/uL (140-440); RDW COEFFICIENT OF VARIATION 12.7 % (11.6-14.8); RED BLOOD COUNT 4.16 10^6/ul (4.70-6.10); WHITE BLOOD COUNT 5.92 K/ul (4.2-10.2)
[2021-09-08] MEDS ORDERED: CARDIZEM INJ ONE (16:44)
[2021-09-08 16:46] LABS: ALANINE AMINOTRANSFERASE 19.6 U/L (0-50); ALBUMIN 4.46 g/dL (3.5-5.0); ALKALINE PHOSPHATASE 55.2 U/L (56-119); ASPARTATE AMINO TRANSFERASE 23.7 U/L (17-59); BILIRUBIN,TOTAL 0.61 mg/dL (0.2-1.3); BLOOD UREA NITROGEN 22.1 mg/dL (9-20); CALCIUM 9.49 mg/dL (8.4-10.2); CARBON DIOXIDE 25.9 mmol/L (22-30.0); CHLORIDE 108.3 mmol/L (98-107); CREATININE 1.07 mg/dL (0.60-1.10); GLUCOSE 106.3 mg/dL (74-106); POTASSIUM 4.39 mmol/L (3.5-5.1); SODIUM 139.3 mmol/L (134.5-145); TOTAL PROTEIN 6.77 g/dL (6.3-8.2)
[2021-09-08] MEDS ORDERED: CARDIZEM INJ IVP ONE (16:54)
[2021-09-08 17:15] LABS: TROPONIN I < 0.012 ng/ml (0.0000-0.120)
[2021-09-08] MEDS: CARDIZEM 125 MG in SODIUM CHLORIDE 100ML 100 ML IV SCH (18:06)
[2021-09-08] MEDS ORDERED: NITROSTAT SL PRN (18:35)
[2021-09-08] MEDS ORDERED: ATROPINE SULFATE PFS IVP PRN (18:35)
[2021-09-08] MEDS ORDERED: TYLENOL PO PRN (18:35)
--- NOTE | 2021-09-08 18:41 | DI ---
EXAM: Single view of the chest. History: Chest pain. Comparison: Chest radiograph 02/17/2019 Findings: Heart size is normal. No consolidation. Atherosclerotic vascular calcifications. No ple ural fluid and no pneumothorax. No acute osseous abnormalities. Impression: No acute cardiopulmonary process
[2021-09-08 19:10] LABS: BORDETELLA PARAPERTUSSIS (PCR) NOT DETECTED (NOT DETECT); BORDETELLA PERTUSSIS (PCR) NOT DETECTED (NOT DETECT); CHLAMYDIA PNEUMONIAE (PCR) NOT DETECTED (NOT DETECT); CORONAVIRUS 229E (PCR) NOT DETECTED (NOT DETECT); CORONAVIRUS HKU1 (PCR) NOT DETECTED (NOT DETECT); CORONAVIRUS NL63 (PCR) NOT DETECTED (NOT DETECT); CORONAVIRUS OC43 (PCR) NOT DETECTED (NOT DETECT); HUMAN METAPNEUMOVIRUS (PCR) NOT DETECTED (NOT DETECT); HUMAN RHINOVIRUS/ENTEROV (PCR) NOT DETECTED (NOT DETECT); INFLUENZA B (PCR) NOT DETECTED (NOT DETECT); MYCOPLASMA PNEUMONIAE (PCR) NOT DETECTED (NOT DETECT); PARAINFLUENZA VIRUS 1 (PCR) NOT DETECTED (NOT DETECT); PARAINFLUENZA VIRUS 2 (PCR) NOT DETECTED (NOT DETECT); PARAINFLUENZA VIRUS 3 (PCR) NOT DETECTED (NOT DETECT); PARAINFLUENZA VIRUS 4 (PCR) NOT DETECTED (NOT DETECT); RESPIRATORY SYNCYTIAL V (PCR) NOT DETECTED (NOT DETECT); SARS_COV_2 (PCR) NOT DETECTED (NOT DETECT)
[2021-09-08 19:13] LABS: CREATINE KINASE 33.5 U/L (55-170)
[2021-09-08 19:26] LABS: TROPONIN I < 0.012 ng/ml (0.0000-0.120)
[2021-09-08 19:57] LABS: ADENOVIRUS (PCR) NOT DETECTED (NOT DETECT)
[2021-09-08] MEDS: CARDIZEM PO SCH (21:28)
[2021-09-08] MEDS: ELIQUIS PO SCH (21:28)
[2021-09-08] MEDS: SODIUM CHLORIDE 1,000 ML IV SCH (22:30)
[2021-09-08 23:07] VITALS: BMI 24.8
[2021-09-09] MEDS: CARDIZEM PO SCH ×3 (04:27→20:23)
[2021-09-09 04:34] LABS: BILIRUBIN,URINE Negative (NEGATIVE); CLARITY,URINE Clear (CLEAR); COLOR,URINE Yellow (YELLOW); GLUCOSE, URINE (UA) Negative (NEGATIVE); KETONES,URINE Negative (NEGATIVE); LEUKOCYTE ESTERASE ,URINE Negative (NEGATIVE); NITRITE,URINE Negative (NEGATIVE); PROTEIN,URINE Negative (NEGATIVE); URINE, BLOOD Negative (NEGATIVE); UROBILINOGEN,URINE 0.2 (0.2)
[2021-09-09 05:45] LABS: BASOPHILS # (AUTO) 0.1 K/uL (0-0.2); BASOPHILS % (AUTO) 1.3 % (0.0-3.0); EOSINOPHILS # (AUTO) 0.2 K/ul (0.0-0.7); EOSINOPHILS % (AUTO) 3.5 % (0.0-7.0); HEMATOCRIT 39.5 % (42.0-52.0); HEMOGLOBIN 13.1 g/dl (14.0-18.0); IMMATURE GRANULOCYTE % (AUTO) 0.2 % (0.0-5.0); LYMPHOCYTES # (AUTO) 1.5 K/uL (0.60-3.4); LYMPHOCYTES % (AUTO) 34.1 (10.0-50.0); MEAN CORPUSCULAR HEMOGLOBIN 33.8 pg (27.0-31.0); MEAN CORPUSCULAR HGB CONC 33.2 (31.8-35.4); MEAN CORPUSCULAR VOLUME 101.8 fl (80.0-94.0); MONOCYTES # (AUTO) 0.4 K/uL (0.4-2.0); MONOCYTES % (AUTO) 8.9 (0-10); NEUTROPHILS # (AUTO) 2.3 K/ul (2.0-6.9); PLATELET COUNT 215 10^3/uL (140-440); RDW COEFFICIENT OF VARIATION 12.8 % (11.6-14.8); RED BLOOD COUNT 3.88 10^6/ul (4.70-6.10); WHITE BLOOD COUNT 4.51 K/ul (4.2-10.2)
[2021-09-09] MEDS: CARDIZEM 125 MG in SODIUM CHLORIDE 100ML 100 ML IV SCH (05:50)
[2021-09-09 05:56] LABS: ALANINE AMINOTRANSFERASE 17.6 U/L (0-50); ALBUMIN 4.13 g/dL (3.5-5.0); ALKALINE PHOSPHATASE 57.9 U/L (56-119); ASPARTATE AMINO TRANSFERASE 17.7 U/L (17-59); BILIRUBIN,TOTAL 0.78 mg/dL (0.2-1.3); BLOOD UREA NITROGEN 18.7 mg/dL (9-20); CALCIUM 9.17 mg/dL (8.4-10.2); CARBON DIOXIDE 24.2 mmol/L (22-30.0); CHLORIDE 109.1 mmol/L (98-107); CREATININE 0.96 mg/dL (0.60-1.10); POTASSIUM 4.04 mmol/L (3.5-5.1); SODIUM 138.9 mmol/L (134.5-145); TOTAL PROTEIN 6.21 g/dL (6.3-8.2)
[2021-09-09 05:57] LABS: CHOLESTEROL 162.6 mg/dL (0-200); CREATINE KINASE 32.7 U/L (55-170); HDL CHOLESTEROL 41.9 mg/dL (35-60); LDL CHOLESTEROL,CALCULATED 95 mmol/L; TRIGLYCERIDES 127.5 mg/dL (0-150); VLDL CHOLESTEROL 26 mg/dL (2-30)
[2021-09-09 06:08] LABS: TROPONIN I < 0.012 ng/ml (0.0000-0.120)
[2021-09-09] MEDS: TIMOPTIC 0.5% OPTH EACHEYE SCH ×2 (09:13→20:24)
[2021-09-09] MEDS: ELIQUIS PO SCH ×2 (09:14→20:23)
[2021-09-09] MEDS ORDERED: LANOXIN IVP ONE ×2 (09:28→14:18)
[2021-09-09] MEDS ORDERED: DECADRON IM ONE (09:28)
[2021-09-09] MEDS ORDERED: BETAPACE PO STA (09:28)
[2021-09-09] MEDS ORDERED: TORADOL IVP ONE (09:28)
--- NOTE | 2021-09-09 10:22 | PCM.PROG ---
Attending Provider: ATTENDING PROVIDER: Dr. RAYA DUKES DATE OF SERVICE: 09/09/21 SUBJECTIVE: This 75 year old /WHITE M was hospitalized 09/08/21 with atrial fibrillation with rapid ventricular response noted in the office when he walked in just to get Decadron shot for allergies and neck pain. The patient has been given Cardizem IV and IV Bolus. Flutter and fib with rate 90-160 per minute. REVIEW OF SYSTEMS: CONSTITUTIONAL: No night sweats. No fatigue, malaise, lethargy. No fever or chills. HEENT: Eyes: No visual changes. No eye pain. No eye discharge. ENT: No runny nose. No epistaxis. No sinus pain. No odynophagia. No congestion. RESPIRATORY: No cough, no congestion. No hemoptysis. No shortness of breath. CARDIOVASCULAR: No angina symptoms. No CHF symptoms. No atypical chest pain for CAD. No palpitations. No orthopnea.. GASTROINTESTINAL: No abdominal pain. No nausea or vomiting. No diarrhea or constipation. No hematemesis. No hematochezia. GENITOURINARY: No urgency. No frequency. No dysuria. No hematuria. No obstructive symptoms. No discharge. No pain. No significant abnormal bleeding. MUSCULOSKELETAL: No musculoskeletal pain; no joint swelling. NEUROLOGICAL: Awake, alert, oriented to time, place and person. No headache. No neck pain. No syncope. No seizures. No dizziness. PSYCHIATRIC: Not anxious. No depression. No suicidal thoughts. No homicidal thoughts. SKIN: No rash. No lesions. No wounds. ENDOCRINE: No unexplained weight loss. No weight gain. HEMATOLOGIC/LYMPHATIC: No anemia. No purpura. No petechiae. No prolonged or excessive bleeding. No palpable lymph nodes. PHYSICAL EXAMINATION: GENERAL: The patient is awake, alert and oriented, lying/sitting in bed in no distress. VITAL SIGNS: Temperature 97.0 F, Pulse 75, Respiratory Rate 16, BP 118/72, Pulse Ox 99% HEENT: Head normocephalic, atraumatic. Eyes: Extraocular muscles are intact. Pupils are equal, round and reactive to light and accommodation. Ears: No lesions. Nose appeared normal. Throat: No exudate or erythema. NECK: Supple. No JVD, no carotid bruit. No lymphadenopathy or thyromegaly. LUNGS: Clear to auscultation. Percussion note normal. Chest symmetrical. HEART: S1, S2, no S3. irregular. No murmurs. No cyanosis or clubbing. No ascites. Pulses: Dorsalis pedis and posterior tibial pulses +1 to +2 both sides. ABDOMEN: Soft. Non-tender. Bowel sounds active. No CVA tenderness. No mass felt. EXTREMITIES: No edema. Full range of motion of all extremities, equal. NEUROLOGIC: No focal deficit. Cranial nerves II through XII are grossly intact. No headache, no double vision or headache. SKIN: Warm and dry. Intact. Turgor-normal. LYMPHATIC: No palpable lymph nodes/no lymphedema. MUSCULOSKELETAL: Normal joints with no swelling. Muscle tone is normal. LAB REVIEW: 09/09/21 05:07 09/09/21 05:07 09/09/21 05:07: Total Creatine Kinase 32.7 L, Troponin I < 0.012, Triglycerides 127.5, Cholesterol 162.6, LDL Cholesterol, Calc 95, VLDL Cholesterol 26, HDL Cholesterol 41.9, Cholesterol/HDL Ratio 3.9 L 09/09/21 05:07: Sodium 138.9, Potassium 4.04, Chloride 109.1 H, Carbon Dioxide 24.2, Anion Gap 9.64, BUN 18.7, Creatinine 0.96, Estimated GFR (MDRD) 77.00, BUN/Creatinine Ratio 19.47, Glucose 113.0 H, Calcium 9.17, Total Bilirubin 0.78, AST 17.7, ALT 17.6, Alkaline Phosphatase 57.9, Total Protein 6.21 L, Albumin 4.13, Globulin 2.08, Albumin/Globulin Ratio 1.98 09/09/21 05:07: WBC 4.51, RBC 3.88 L, Hgb 13.1 L, Hct 39.5 L, MCV 101.8 H, MCH 33.8 H, MCHC 33.2, RDW Coeff of Cristino 12.8, Plt Count 215, Immature Gran % (Auto) 0.2, Neut % (Auto) 52.0, Lymph % (Auto) 34.1, [place] % (Auto) 8.9, Eos % (Auto) 3.5, Baso % (Auto) 1.3, Neut # (Auto) 2.3, Lymph # (Auto) 1.5, [place] # (Auto) 0.4, Eos # (Auto) 0.2, Baso # (Auto) 0.1, Immature Gran # (Auto) 0.0 09/09/21 04:21: Urine Color Yellow, Urine Clarity Clear, Urine pH 6.0, Ur Speci fic [place] 1.025, Urine Protein Negative, Urine Glucose (UA) Negative, Urine Ketones Negative, Urine Blood Negative, Urine Nitrite Negative, Urine Bilirubin Negative, Urine Urobilinogen 0.2, Ur Leukocyte Esterase Negative 09/08/21 19:05: Adenovirus (PCR) Not detected, B. pertussis DNA (PCR) Not detected, B.parapertussis DNA PCR Not detected, C. pneumoniae DNA (PCR) Not de tected, Coronavirus OC43 (PCR) Not detected, Coronavirus HKU1 (PCR) Not detected, Coronavirus 229E (PCR) Not detected, Coronavirus NL63 (PCR) Not detected, Human Metapneumovir PCR Not detected, Influenza Type A (PCR) Not detected, Influenza B (RT-PCR) Not detected, M. pneumoniae (PCR) Not detected, Parainfluenza 1 (PCR) Not detected, Parainfluenza 2 (PCR) Not detected, Parainfluenza 3 (PCR) Not detected, Parainfluenza 4 (PCR) Not detected, RSV (PCR) Not detected, Entero/Rhino (PCR) Not detected, SARS-CoV-2 (PCR) Not detected 09/08/21 18:53: Total Creatine Kinase 33.5 L, Troponin I < 0.012 09/08/21 16:10: TSH 1.020 09/08/21 16:10: Free T4 1.23 09/08/21 16:10: Sodium 139.3, Potassium 4.39, Chloride 108.3 H, Carbon Dioxide 25.9, Anion Gap 9.49, BUN 22.1 H, Creatinine 1.07, Estimated GFR (MDRD) 68.00, BUN/Creatinine Ratio 20.65, Glucose 106.3 H, Calcium 9.49, Total Bilirubin 0.61, AST 23.7, ALT 19.6, Alkaline Phosphatase 55.2 L, Troponin I < 0.012, Total Protein 6.77, Albumin 4.46, Globulin 2.31, Albumin/Globulin Ratio 1.93 09/08/21 16:10: WBC 5.92, RBC 4.16 L, Hgb 14.0, Hct 41.4 L, MCV 99.5 H, MCH 33.7 H, MCHC 33.8, RDW Coeff of Cristino 12.7, Plt Count 243, Immature Gran % (Auto) 0.5, Neut % (Auto) 50.5, Lymph % (Auto) 33.3, [place] % (Auto) 11.1 H, Eos % (Auto) 3.4, Baso % (Auto) 1.2, Neut # (Auto) 3.0, Lymph # (Auto) 2.0, [place] # (Auto) 0.7, Eos # (Auto) 0.2, Baso # (Auto) 0.1, Immature Gran # (Auto) 0.0 ASSESSMENT: Please see below. 1. Atrial fibrillation with rapid ventricular response. PLAN: 1. Lanoxin 125mcg 2. Continue Cardizem 3. Betapace 40mg now 4. 1/2cc Decadron 5. Toradol 30mg IV 6. BNP 7. C spine x-ray done last year. Plan and coordination of the patient's care discussed in the presence of Associate Programmer Analyst and nurse. EDUCATION: Explained about Eliquis and complications of GI bleed, intracranial bleed. Atrial fibrillation with it's complications discussed. CHADS II Vasc score is 2. CONDITION: Stable. SCRIBED BY: Fidelia CAMARENA scribed while in presence of service performed by Dr. RAYA DUKES on 09/09/21 (1937)
[2021-09-09] MEDS ORDERED: BETAPACE PO ONE ×4 (12:19→23:41)
[2021-09-09] MEDS ORDERED: BETAPACE ONE (12:22)
[2021-09-09] MEDS: XALATAN EACHEYE SCH (20:23)
[2021-09-09] MEDS ORDERED: LANOXIN IVP STA (21:40)
[2021-09-10] MEDS ORDERED: BETAPACE ONE (00:06)
[2021-09-10] MEDS: CARDIZEM PO SCH ×3 (05:07→20:59)
[2021-09-10 05:50] LABS: BASOPHILS % (AUTO) 0.1 % (0.0-3.0); EOSINOPHILS % (AUTO) 0.3 % (0.0-7.0); HEMATOCRIT 38.9 % (42.0-52.0); HEMOGLOBIN 13.1 g/dl (14.0-18.0); IMMATURE GRANULOCYTE # (AUTO) 0.1 (0.0-1.0); IMMATURE GRANULOCYTE % (AUTO) 0.7 % (0.0-5.0); LYMPHOCYTES # (AUTO) 1.3 K/uL (0.60-3.4); LYMPHOCYTES % (AUTO) 18.3 (10.0-50.0); MEAN CORPUSCULAR HEMOGLOBIN 33.3 pg (27.0-31.0); MEAN CORPUSCULAR HGB CONC 33.7 (31.8-35.4); MONOCYTES # (AUTO) 0.5 K/uL (0.4-2.0); MONOCYTES % (AUTO) 7.6 (0-10); NEUTROPHILS # (AUTO) 5.2 K/ul (2.0-6.9); PLATELET COUNT 229 10^3/uL (140-440); RDW COEFFICIENT OF VARIATION 12.2 % (11.6-14.8); RED BLOOD COUNT 3.93 10^6/ul (4.70-6.10); WHITE BLOOD COUNT 7.12 K/ul (4.2-10.2)
[2021-09-10 06:05] LABS: ALANINE AMINOTRANSFERASE 16.4 U/L (0-50); ALBUMIN 4.05 g/dL (3.5-5.0); ALKALINE PHOSPHATASE 55.2 U/L (56-119); ASPARTATE AMINO TRANSFERASE 18.7 U/L (17-59); BILIRUBIN,TOTAL 0.73 mg/dL (0.2-1.3); BLOOD UREA NITROGEN 19.7 mg/dL (9-20); CALCIUM 9.04 mg/dL (8.4-10.2); CARBON DIOXIDE 22.3 mmol/L (22-30.0); CHLORIDE 106.9 mmol/L (98-107); GLUCOSE 121.5 mg/dL (74-106); POTASSIUM 4.22 mmol/L (3.5-5.1); SODIUM 134.3 mmol/L (134.5-145); TOTAL PROTEIN 6.24 g/dL (6.3-8.2)
[2021-09-10] MEDS: ELIQUIS PO SCH ×2 (08:50→21:32)
[2021-09-10] MEDS: TIMOPTIC 0.5% OPTH EACHEYE SCH ×2 (08:51→21:32)
[2021-09-10] MEDS: BETAPACE PO SCH ×2 (10:47→21:31)
[2021-09-10] MEDS: PRAVACHOL PO SCH (13:44)
[2021-09-10] MEDS: SODIUM CHLORIDE 1,000 ML IV SCH ×2 (14:05→14:11)
[2021-09-10] MEDS ORDERED: BETAPACE PO ONE ×2 (17:41→21:16)
[2021-09-10] MEDS ORDERED: LANOXIN IVP ONE (19:35)
[2021-09-10] MEDS ORDERED: CARDIZEM PO ONE (19:37)
[2021-09-10] MEDS: XALATAN EACHEYE SCH (21:31)
[2021-09-11 05:24] LABS: BASOPHILS # (AUTO) 0.1 K/uL (0-0.2); BASOPHILS % (AUTO) 0.7 % (0.0-3.0); EOSINOPHILS # (AUTO) 0.2 K/ul (0.0-0.7); EOSINOPHILS % (AUTO) 2.2 % (0.0-7.0); HEMATOCRIT 40.3 % (42.0-52.0); HEMOGLOBIN 13.6 g/dl (14.0-18.0); IMMATURE GRANULOCYTE % (AUTO) 0.4 % (0.0-5.0); LYMPHOCYTES # (AUTO) 2.3 K/uL (0.60-3.4); LYMPHOCYTES % (AUTO) 33.6 (10.0-50.0); MEAN CORPUSCULAR HEMOGLOBIN 33.4 pg (27.0-31.0); MEAN CORPUSCULAR HGB CONC 33.7 (31.8-35.4); MONOCYTES # (AUTO) 0.6 K/uL (0.4-2.0); MONOCYTES % (AUTO) 8.1 (0-10); NEUTROPHILS # (AUTO) 3.7 K/ul (2.0-6.9); PLATELET COUNT 210 10^3/uL (140-440); RDW COEFFICIENT OF VARIATION 12.7 % (11.6-14.8); RED BLOOD COUNT 4.07 10^6/ul (4.70-6.10); WHITE BLOOD COUNT 6.79 K/ul (4.2-10.2)
[2021-09-11 05:37] LABS: ALANINE AMINOTRANSFERASE 15.7 U/L (0-50); ALBUMIN 3.92 g/dL (3.5-5.0); ALKALINE PHOSPHATASE 53.2 U/L (56-119); ASPARTATE AMINO TRANSFERASE 17.6 U/L (17-59); BILIRUBIN,TOTAL 0.83 mg/dL (0.2-1.3); BLOOD UREA NITROGEN 23.4 mg/dL (9-20); CALCIUM 8.79 mg/dL (8.4-10.2); CARBON DIOXIDE 21.5 mmol/L (22-30.0); CHLORIDE 108.4 mmol/L (98-107); CREATININE 1.02 mg/dL (0.60-1.10); GLUCOSE 92.6 mg/dL (74-106); POTASSIUM 4.09 mmol/L (3.5-5.1); TOTAL PROTEIN 6.12 g/dL (6.3-8.2)
[2021-09-11] MEDS: CARDIZEM PO SCH ×2 (05:50→12:30)
[2021-09-11] MEDS: PRAVACHOL PO SCH (08:01)
[2021-09-11] MEDS: BETAPACE PO SCH (08:01)
[2021-09-11] MEDS: ELIQUIS PO SCH (08:02)
[2021-09-11] MEDS: TIMOPTIC 0.5% OPTH EACHEYE SCH (08:02)
[2021-09-11] MEDS ORDERED: BETAPACE PO ONE (10:16)
[2021-09-11] MEDS ORDERED: CARDIZEM PO ONE ×2 (10:17→10:30)
[2021-09-11 11:03] VITALS: BP 99/63; TEMP 97.4
[2021-09-11] MEDS ORDERED: DECADRON IM ONE (13:51)
--- NOTE | 2021-09-12 14:36 | PN ---
DATE OF SERVICE: 09/10/21 SUBJECTIVE: 75 year old white male hospitalized with atrial fibrillation with rapid ventricular respond. The patient is practically asymptomatic. He is being given Betapace and Lanoxin intermittently 0.125mg IV with Cardizem 60mg TID. Cardiac markers are negative. Echo showed LVH just the same as before, two years ago. Enlarged LA cavity which is 4.7 cm size. CHADS VASC Score of 3. He is almost 76 with history of hypertension and also have history of vascular disease so that will put him on 4 CHADS VASC SCORE of 4. The patient had left carotid endarterectomy, the right one is completely occluded. The patient is asymptomatic. REVIEW OF SYSTEMS: CONSTITUTIONAL: No night sweats. No fatigue, malaise, lethargy. No fever or chills. HEENT: Eyes: No visual changes. No eye pain. No eye discharge. ENT: No runny nose. No epistaxis. No sinus pain. No sore throat. No odynophagia. No congestion. RESPIRATORY: No cough, no congestion. No hemoptysis. No shortness of breath. CARDIOVASCULAR: No angina symptoms. No CHF symptoms. No atypical chest pain for CAD. No palpitations. No PND. No orthopnea. GASTROINTESTINAL: No abdominal pain. No nausea or vomiting. No diarrhea or constipation. No hematemesis. No hematochezia. GENITOURINARY: No urgency. No frequency. No dysuria. No hematuria. No obstructive symptoms. No discharge. No pain. No significant abnormal bleeding. MUSCULOSKELETAL: No musculoskeletal pain; no joint swelling. NEUROLOGICAL: No headache. No neck pain. No syncope. No seizures. No dizziness. PSYCHIATRIC: Not anxious. No depression. No suicidal thoughts. No homicidal thoughts. SKIN: No rash. No lesions. No wounds. ENDOCRINE: No unexplained weight loss. No weight gain. HEMATOLOGIC/LYMPHATIC: No anemia. No purpura. No petechiae. No prolonged or excessive bleeding. No palpable lymph nodes. PHYSICAL EXAMINATION: VITAL SIGNS: Temperature 97.2, pulse 96, respiratory rate 22, blood pressure 125/79 and pulse ox 98%. HEENT: Head normocephalic, atraumatic. Eyes: Extraocular muscles are intact. Pupils are equal, round and reactive to light and accommodation. Ears: No lesions. Nose appeared normal. Throat: No exudate or erythema. NECK: Supple. No JVD, no carotid bruit. No lymphadenopathy or thyromegaly. LUNGS: Decreased breath sounds but clear to auscultation. Percussion note normal. Chest symmetrical. HEART: S1, S2, no S3. No murmurs. No cyanosis or clubbing. No ascites. Pulses: Dorsalis pedis and posterior tibial pulses +1 to +2 bilaterally. ABDOMEN: Soft. Nontender. Bowel sounds active. No CVA tenderness. No mass felt. EXTREMITIES: No edema. Full range of motion of all extremities, equal. NEUROLOGIC: No focal deficit. Cranial nerves II through XII are grossly intact. No headache. No double vision. SKIN: Not dry. Intact. Turgor - normal. LYMPHATIC: No palpable lymph nodes/no lymphedema. MUSCULOSKELETAL: Normal joints with no swelling. Muscle tone is normal. LABS: Hgb 13.1, hct 38, WBC 7,100 normal differential, creatinine 1, BUN 19, potassium 4.2. ASSESSMENT: 1. Atrial fibrillation with rapid ventricular response. The patient is controlled to extent with combination of Betapace and Cardizem and Lanoxin. The patient is already on Eliquis. Side effects of Eliquis discussed with the patient in detail including GI bleed and intracranial bleed. Side effect of Atrial fibrillation discussed. The patient's echo doesn't show any evidence with thrombus or thrombi in the left antrum, left ventricle. LA cavity is 4.7cm size. Discussed about referral to Dr. Sawant the food crops farm hand. The patient has carotid massage done with 5 second pause. The patient stayed in atrial flutter/fib even after that pause. TIME SPENT: More than 30 minutes. Plan and coordination of the patient's care discussed in the presence of nurse. ABEBA
--- NOTE | 2021-09-12 14:44 | PN ---
DATE OF SERVICE: 09/11/21 SUBJECTIVE: 75 year old white male hospitalized with atrial fibrillation with rapid ventricular response. The patient is asymptomatic. It was an incidental finding when the patient came for neck pain, Cervical radiculopathy type of symptoms for Decadron shot. REVIEW OF SYSTEMS: CONSTITUTIONAL: No night sweats. No fatigue, malaise, lethargy. No fever or chills. HEENT: Eyes: No visual changes. No eye pain. No eye discharge. ENT: No runny nose. No epistaxis. No sinus pain. No sore throat. No odynophagia. No congestion. RESPIRATORY: No cough, no congestion. No hemoptysis. No shortness of breath. CARDIOVASCULAR: No angina symptoms. No CHF symptoms. No atypical chest pain for CAD. No palpitations. No PND. No orthopnea. GASTROINTESTINAL: No abdominal pain. No nausea or vomiting. No diarrhea or constipation. No hematemesis. No hematochezia. GENITOURINARY: No urgency. No frequency. No dysuria. No hematuria. No obstructive symptoms. No discharge. No pain. No significant abnormal bleeding. MUSCULOSKELETAL: No joint swelling. Neck pain. NEUROLOGICAL: No headache. No neck pain. No syncope. No seizures. No dizziness. PSYCHIATRIC: Not anxious. No depression. No suicidal thoughts. No homicidal thoughts. SKIN: No rash. No lesions. No wounds. ENDOCRINE: No unexplained weight loss. No weight gain. HEMATOLOGIC/LYMPHATIC: No anemia. No purpura. No petechiae. No prolonged or excessive bleeding. No palpable lymph nodes. PHYSICAL EXAMINATION: VITAL SIGNS: Temperature 97.6, pulse 93, respiratory rate 16, blood pressure 115/70 and pulse ox 97%. HEENT: Head normocephalic, atraumatic. Eyes: Extraocular muscles are intact. Pupils are equal, round and reactive to light and accommodation. Ears: No lesions. Nose appeared normal. Throat: No exudate or erythema. NECK: Supple. No JVD, no carotid bruit. No lymphadenopathy or thyromegaly. LUNGS: Decreased breath sounds but clear to auscultation. Percussion note normal. Chest symmetrical. HEART: S1, S2, no S3. No murmurs. No cyanosis or clubbing. No ascites. Pulses: Dorsalis pedis and posterior tibial pulses +1 to +2 bilaterally. ABDOMEN: Soft. Nontender. Bowel sounds active. No CVA tenderness. No mass felt. EXTREMITIES: No edema. Full range of motion of all extremities, equal. NEUROLOGIC: No focal deficit. Cranial nerves II through XII are grossly intact. No headache. No double vision. SKIN: Not dry. Intact. Turgor - normal. LYMPHATIC: No palpable lymph nodes/no lymphedema. MUSCULOSKELETAL: Normal joints with no swelling. Muscle tone is normal. LABS: Hgb 13, hct 40, WBC 6,700 normal differential, creatinine 1, BUN 23, potassium4. ASSESSMENT: 1. Atrial fibrillation with rapid ventricular response seems to be more or less controlled at time with Cardizem and Betapace combination. The patient's heart goes down to 50s and 60s but picks up from 80-120 to 30 per minute. PLAN: 1. Discharge the patient home on Cardizem 90mg PO twice a day along with Betapace 80mg BID 2. Eliquis 5mg twice a day 3. Pravastatin 40mg PO daily 4. Discontinue Aspirin 5. Strongly advised against any nonsteroidal antiinflammatory side effect of Eliquis discussed like intracranial bleed and GI. Not to mix with nonsteroidal inflammatory. Complications of atrial fibrillation. is present in the room 6. The patient is going to be seen on Sunday around 10am on followup. CONDITION: Otherwise stable. TIME SPENT: More than 30 minutes. Plan and coordination of the patient's care discussed in the presence of nurse. ABEBA
--- NOTE | 2021-09-14 09:54 | ECHO2D ---
Date of Exam: 09/09/2021 Ordering Physician: DR. RAYA DUKES Room #: 104 Reason for Echo: ATRIAL FIBRILLATION, ATRIAL FLUTTER M-Mode Normal Adult Results LV Dimensions Normal Adult Results AoV Opening excursions >1.6 >1.6 LVEDD-base- 3.5-5.8 3.9 Ao root dimensions 2.0-3.7 3.3 LVESD-base- 3.1-4.6 L. Atrium dimensions 1.9-3.8 4.6 Post. Wall thickness 0.8-1.1 1.2 IV septum (thickness) 0.7-1.2 1.4 Post. Wall excursion 0.72-1.3 NORMAL Septal motion 0.7 Systolic motion R. Ventricular cavity 1.5-2.0 NORMAL LVEF 60% 54% Paradoxical septal wall motion NORMAL 2-D : 2-D M Mode Echocardiogram was performed using apical four chamber and left parasternal long and short axis views. Mitral, tricuspid and aortic valves appear to be normal. Contractility of the left ventricle seems to be normal, so is the cavity size. ENLARGED Left atrial cavity size. Aortic roots appear to be normal. There is no pericardial effusion. There is no thrombus noted in the left ventricle or left atrial cavity. M-MODE: MV: NORMAL AV: NORMAL TV: NORMAL PV: CHAMBER SIZE: ENLARGED LEFT ATRIAL CAVITY WALL MOTION: NORMAL PERICARDIUM: NORMAL INTERPRETATION: 1. LEFT VENTRICLE HYPERTROPHY WITH ENLARGED LEFT ATRIAL CAVITY (4.6 CM) 2. NORMAL VALVES 3. STIFF SEPTUM--MILDLY HYPOKINETIC WITH LEFT VENTRICLE EJECTION FRACTION 54% 4. NORMAL LEFT VENTRICLE SIZE MTDD
--- NOTE | 2021-09-19 14:34 | HP ---
DATE OF SERVICE: 09/08/21 REASON FOR HOSPITALIZATION: Atrial fib/flutter with rapid ventricular response HISTORY OF PRESENT ILLNESS: 75 year old white male came to the office with neck pain came for Decadron shot. Vitals were taken and his pulse noted to be 166 per minute. He was sent to the emergency room where EKG revealed that he had atrial flutter with 2:1 rapid ventricular response. The patient had practically no symptoms except for neck pain he had from cervical radiculopathy. The patient underwent chest x-ray and labs test. They were practically normal. PAST MEDICAL HISTORY/PAST SURGICAL HISTORY: Lumbar radiculopathy Cervical radiculopathy Carotid endarterectomy Right carotid artery complete occlusion Chronic lung disease with history of smoking, quit [address] 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 No fatigue, malaise, lethargy. No fever or chills. HEENT: Eyes: No visual changes. No eye pain. No eye discharge. ENT: No runny nose. No epistaxis. No sinus pain. No sore throat. No odynophagia. No ear pain. No congestion. RESPIRATORY: No cough, no congestion. No hemoptysis. No shortness of breath. CARDIOVASCULAR: No angina symptoms. No CHF symptoms. No atypical chest pain for CAD. No palpitations. No PND. No orthopnea. GASTROINTESTINAL: No abdominal pain. No nausea or vomiting. No diarrhea or constipation. No hematemesis. No hematochezia. GENITOURINARY: No urgency. No frequency. No dysuria. No hematuria. No obstructive symptoms. No discharge. No pain. No significant abnormal bleeding. MUSCULOSKELETAL: No musculoskeletal pain. No joint swelling. No arthritis. Neck pain. NEUROLOGICAL: No headache. No neck pain. No syncope. No seizures. No dizziness. PSYCHIATRIC: Not anxious. No depression. No suicidal thoughts. No homicidal thoughts. SKIN: No rash. No lesions. No wounds. ENDOCRINE: No unexplained weight loss. No weight gain. HEMATOLOGIC/LYMPHATIC: No anemia. No purpura. No petechiae. No prolonged or excessive bleeding. No palpable lymph nodes. PERSONAL/FAMILY/SOCIAL HISTORY: The patient is . Nonsmoker. No alcohol abuse. Does all activity of daily living. MEDICATIONS: Diltiazem 60mg one a day Humalog Eye drops Flonase Triology two puffs every morning Coated aspirin one a day ALLERGIES: None. PHYSICAL EXAMINATION: GENERAL: The patient is oriented to time, place and person. VITAL SIGNS: Temperature 98.6, pulse 160 per minutes. Respiratory 15. blood pressure 117/89 and pulse ox oxygen saturation 98%. Height 5'10inches weight 167 pounds. BMI 24. HEENT: Head normocephalic, atraumatic. Eyes: Extraocular muscles are intact. Pupils are equal, round and reactive to light and accommodation. Ears: No lesions. Nose appeared normal. Throat: No exudate or erythema. NECK: Supple. No JVD, no carotid bruit. No lymphadenopathy or thyromegaly. LUNGS: Decreased breath sounds but clear to auscultation. Percussion note normal. Chest symmetrical. HEART: S1, S2, no S3. Rate 150 per minute irregular. Atrial flutter with 2:1. No murmur. No cyanosis or clubbing. No ascites. Pulses: Dorsalis pedis and posterior tibial pulses +1 to +2 bilaterally. ABDOMEN: Soft. Nontender. Bowel sounds active. No CVA tenderness. No mass felt. EXTREMITIES: No edema. Full range of motion of all extremities, equal. NEUROLOGIC: No focal deficit. Cranial nerves II through XII are grossly intact. No headache, no double vision or headache. SKIN: Not dry. Intact. Turgor - normal. LYMPHATIC: No palpable lymph nodes/no lymphedema. MUSCULOSKELETAL: Normal joints with no swelling. Muscle tone is normal. LABS: Chest x-ray negative, COPD. GFR 68 cc per minute, Troponin negative. SARS COVID test negative on admission. ASSESSMENT: 1. Atrial fibrillation with rapid ventricular response 2. Carotid endarterectomy 3. Right Carotid artery complete occlusion 4. Chronic lung disease 5. History of smoking,quit 2000 6. Dyslipidemia 7. Cervical and lumbar radiculopathy 8. Hypothyroidism 9. History of atrial fibrillation 2017 at the time when the patient had pneumonitis for 36 hours 10.History of blindness left eye embolic at the time the patient had left carotid endarterectomy PLAN: 1. Routine telemetry orders which would include serial EKGs 2. Cardiac markers 3. No evidence of any angina or CHF with heart rate of 160 to 166 per minute, don't know how long the patient had that. 4. Cardizem 20mg IV push with 10mg per minute hour drip 5. Eliquis mg PO BID 6. Telemetry and oximetry 7. COVID negative 8. CHADS VASC II score is 4. 9. Complication of atrial fibrillation and Eliquis discussed with the patient in detail. TIME SPENT: More than 70 minutes. MTDD
--- NOTE | 2021-09-19 14:48 | DS ---
DATE OF SERVICE: 09/11/21 FINAL DIAGNOSIS: 1. Atrial fibrillation/flutter with varying ventricular response. CHADS VASC II SCORE 4. 2. Acute pain with cervical radiculopathy 3. History of sciatic lumbar strain with lumbar radiculopathy 4. Left carotid endarterectomy, 2013 5. Right carotid complete carotid artery occlusion 6. Chronic lung disease 7. Partial blindness left eye 8. History of glaucoma 9. History of paroxysmal atrial fibrillation along with history of pneumonia 10.Dyslipidemia DISCHARGE INSTRUCTIONS: Discharge home. Instruction to come back on Sunday at 10am. MEDICATIONS AT DISCHARGE: Pravastatin 40mg PO daily Triology two puffs as needed Eye drops Flonase nasal spray NEW PRESCRIPTIONS: Eliquis 5mg PO twice a day Cardizem 90mg PO twice a day Betapace 80mg twice a day DISCONTINUED MEDICATIONS: Aspirin HOSPITAL COURSE: 75 year old white male seen in the office on 09/08/21 with heart rate of 166 per minute when he came for Decadron shot for possible muscle spasm and DJD of the spine. The patient was practically asymptomatic. The vitals with pulse rate of 166 in the ER. EKG revealed atrial flutter with 2:1. The patient was practically asymptomatic. The patient was given 20mg IV Cardizem and Cardizem drip was started 10mg per hour. The patient's heart rate was brought under control. He required initial Betapace and Cardizem to control his heart rate. In the hospital Lanoxin was also used because of borderline systolic blood pressure which hovered around 100. In any case at the time of discharge was feeling a lot better. He was asymptomatic throughout his atrial fibrillation. His cervical radiculopathy from symptomatic responded to steroid shots. On discharge the patient was taken off Aspirin and put on Eliquis. Side effects of Eliquis discussed in detail including GI bleed and Intracranial bleed. He was strongly advised not to take any nonsteroidal inflammatory along with his Eliquis. The patient was given Betapace 80mg twice a day and Cardizem 90mg twice a day along with Eliquis and Pravastatin. Side effects of Pravastatin discussed with the patient. It is to be noted that the patient had pneumonia in May 2017 in the hospital stay the patient stayed into the atrial fibrillation rhythm for nearly 36 hours. After that he had practically no known episode. The patient also has history of partial blindness in the left eye likely from carotid surgery and or embolic phenomenon. The patient has right carotid artery complete occlusion. The patient has chronic lung disease and quit smoking in 2000. The patient's condition at the time of discharge is stable. The patient is going to be referred to loader unloader Dr. Sawant. TIME SPENT: More than 60 minutes. ABEBA
--- NOTE | 2021-09-19 14:49 | PN ---
09/08/21: Level 5 09/09/21: Extensive 09/10/21: Extensive 09/11/21: D as in discharge MTDD
== END 2021-09-11 14:20 | disposition home or self-care (01) | DRG 309 ==
LOC: ED 15:57 → MEDSURG A 20:02
PROVIDERS: ADMIT Internal Medicine; ATTEND Internal Medicine
DX: E78.5 Hyperlipidemia, unspecified; H54.42A3 Blindness left eye category 3, normal vision right eye; M54.16 Radiculopathy, lumbar region; M54.12 Radiculopathy, cervical region; H40.219 Acute angle-closure glaucoma, unspecified eye; J44.9 Chronic obstructive pulmonary disease, unspecified; I48.91 Unspecified atrial fibrillation; Z20.822 Contact with and (suspected) exposure to COVID-19; I65.21 Occlusion and stenosis of right carotid artery